=== PATIENT | female | born 1975 | race Caucasian/White ===

== ENCOUNTER → 2019-05-19 | Outpatient (CLI) | payer OTHER, SELFPAY ==
[2019-05-21 16:08] LABS: Age Gdln ACOG Testing 30-65 (.)
[2019-05-22 16:55] LABS: HPV APTIMA, High Risk Negative (Negative)
[2019-05-22 16:56] LABS: HPV Reflexed? YES, CHARGE PATIENT
== END | disposition home or self-care (01) ==
LOC: LABSPEC 10:02
PROVIDERS: Visit Provider Obstetrics & Gynecology
DX: Z12.4 Encounter for screening for malignant neoplasm of cervix (principal)
CPT/HCPCS: 87624; 88175; G0145

== ENCOUNTER → 2019-07-07 07:06 | Outpatient (CLI) | payer OTHER, SELFPAY ==
--- NOTE | 2019-07-07 07:09 | BI_ITS ---
MAMMOGRAPHY - BILATERAL SCREENING 3-D TOMOSYNTHESIS REASON FOR EXAM: Female, 44 years old. BASELINE -- FAM HX PAT GRAM AGE 55 -- NO ISSUES PERTINENT HISTORY: Positive family history as described above. TECHNIQUE: 2-D mammograms and 3-D Tomosynthesis of the breast (s) were performed. CAD was performed. COMPARISON: None. Baseline examination. FINDINGS: The breast composition is composed of scattered fibroglandular density. Scattered benign calcifications are seen. No dense spiculated masses or suspicious microcalcifications are identified. No architectural distortion is identified. There is no skin thickening or retraction. No mammographic abnormality to indicate malignancy. BI/SCREEN MAMM (CAD) W/KIM BILAT IMPRESSION: No mammographic signs of malignancy. Routine yearly mammograms recommended. ASSESSMENT CATEGORY: BIRADS Category 1: Negative. A letter regarding these results will be sent to the patient by the facility within 30 days. FOLLOW UP RECOMMENDATION: Yearly follow up mammogram recommended. (A) Approximately 10% of breast cancers are not detected by mammography. A normal mammogram should not delay biopsy of a clinically suspicious abnormality. Electronically Signed: Brayden Guerrero MD at 14:47 EST Tel [phone], Service support ,
== END ==
PROVIDERS: Family Provider Family Medicine; PCP Family Medicine; Referring Provider Obstetrics & Gynecology; Visit Provider Obstetrics & Gynecology
DX: Z12.31 Encounter for screening mammogram for malignant neoplasm of breast (principal)
CPT/HCPCS: 77063; 77067

== ENCOUNTER → 2019-12-14 09:38 | Outpatient (CLI) | payer OTHER, SELFPAY ==
[2019-12-14 13:44] LABS: ALB/GLOB Ratio 0.8 RATIO (0.9-2.4); AST(SGOT) 17 U/L (15-37); Alanine Aminotransfer ALT/SGPT 19 U/L (13-56); Albumin, Serum 3.8 g/dL (3.2-5.0); Alkaline Phosphatase 96 U/L (45-117); Anion Gap 9 (5-15); BUN 15 mg/dL (7-18); BUN/Creat Ratio 19.9 RATIO (10-20); Chloride 105 mmol/L (98-107); Creatinine, Serum 0.75 mg/dL (0.55-1.02); EST Glomerular Filtration Rate 89 mL/min (>60); Est Glom Filt Rate - Afr Amer 107 mL/min (>60); Globulin 4.5 g/dL (2.2-4.2); Glucose 95 mg/dL (74-106); Potassium 3.8 mmol/L (3.5-5.1); Protein, Total 8.3 g/dL (6.4-8.2); Sodium Level 138 mmol/L (136-145)
== END ==
PROVIDERS: PCP Family Medicine; Referring Provider Family Medicine; Visit Provider Family Medicine
DX: B35.1 Tinea unguium (principal)
CPT/HCPCS: 36415; 80053

== ENCOUNTER → 2022-01-23 | Outpatient (CLI) | payer OTHER, SELFPAY ==
[2022-01-27 08:22] LABS: HPV APTIMA, High Risk Negative (Negative)
== END | disposition home or self-care (01) ==
PROVIDERS: PCP Family Medicine; Visit Provider Student in an Organized Health Care Education/Training Program
DX: Z12.4 Encounter for screening for malignant neoplasm of cervix (principal)
CPT/HCPCS: 87624; 88175; G0145

== ENCOUNTER → 2023-03-22 | Outpatient (CLI) | payer OTHER, SELFPAY ==
[2023-03-22 17:37] LABS: Hematocrit 37.7 % (37-47); Hemoglobin 12.3 g/dL (12.0-15.0); Mean Corp Hgb Conc 32.6 g/dL (32-36); Mean Corpuscular Hgb 30.6 pg (27.0-32.0); Mean Corpuscular Volume 93.8 fL (81-99); Mean Platelet Vol. 11.1 fl (6.2-12.0); Platelet Count 220 K/mm3 (150-450); RBC Distribution Width CV 12.7 % (11.6-14.6); RBC Distribution Width SD 43.5 fl (35.1-43.9); Red Blood Count 4.02 M/mm3 (4.2-5.4); White Blood Count 7.3 K/mm3 (4.4-11.0)
[2023-03-22 18:33] LABS: Hemoglobin A1c 5.3 % (3.8-5.6)
[2023-03-22 18:38] LABS: ALB/GLOB Ratio 1.1 RATIO (0.9-2.4); AST(SGOT) 15 U/L (15-37); Alanine Aminotransfer ALT/SGPT 18 U/L (13-56); Albumin, Serum 3.8 g/dL (3.2-5.0); Alkaline Phosphatase 109 U/L (45-117); Anion Gap 6 (5-15); BUN 12 mg/dL (7-18); Calcium,Total 8.8 mg/dL (8.5-10.1); Chloride 106 mmol/L (98-107); Cholesterol 207 mg/dL (200); Creatinine, Serum 0.71 mg/dL (0.55-1.02); EST Glomerular Filtration Rate 94 mL/min (>60); Est Glom Filt Rate - Afr Amer 114 mL/min (>60); Globulin 3.6 g/dL (2.2-4.2); Glucose 90 mg/dL (74-106); High Density Lipoprotein 51 mg/dL; Potassium 3.9 mmol/L (3.5-5.1); Protein, Total 7.4 g/dL (6.4-8.2); Sodium Level 139 mmol/L (136-145); Thyroid Stim Hormone (TSH) 3.37 uIU/mL (0.358-3.74); Triglycerides 92 mg/dL; Very Low Density Lipoprotein 18 mg/dL (5-40)
== END | disposition home or self-care (01) ==
LOC: MTLAB 14:08
PROVIDERS: PCP Family Medicine; Referring Provider Family Medicine; Visit Provider Family Medicine
DX: Z00.01 Encounter for general adult medical examination with abnormal findings (principal); E66.01 Morbid (severe) obesity due to excess calories; Z68.42 Body mass index [BMI] 45.0-49.9, adult
CPT/HCPCS: 36415; 80053; 80061; 83036; 84443; 85027

== ENCOUNTER → 2023-03-29 | Outpatient (CLI) | payer OTHER, SELFPAY ==
[2023-03-29 15:47] LABS: Follicle Stimulating Hormone 3.9 mIU/mL; Luteinizing Hormone 5.5 mIU/mL
== END | disposition home or self-care (01) ==
LOC: MTLAB 13:14
PROVIDERS: PCP Family Medicine; Referring Provider Family Medicine; Visit Provider Family Medicine
DX: N91.2 Amenorrhea, unspecified (principal)
CPT/HCPCS: 36415; 83001; 83002

== ENCOUNTER → 2023-04-04 | Outpatient (CLI) | payer OTHER, SELFPAY ==
--- NOTE | 2023-04-04 07:15 | BI_ITS ---
MAMMOGRAPHY - BILATERAL SCREENING REASON FOR EXAM: Female, 48 years old. Routine annual screening examination. PERTINENT HISTORY: Grandmother with breast cancer. TECHNIQUE: Digital bilateral breast kim (3D mammographic acquisition) in the CC and MLO projections. 2-D mediolateral oblique (MLO) and craniocaudad (CC) views of both breasts were obtained. CAD: Full Field Digital Mammography with Computer Added Detection was performed. COMPARISON: Comparison is made with prior study dated July 07, 2019. FINDINGS: Breast Composition: There are scattered areas of fibroglandular density. There are no dominant masses or suspicious calcifications. Stable small benign-appearing bilateral axillary lymph nodes. No other significant abnormalities are identified. There has been no significant change since the prior study. BI/SCRN MAMM (CAD)W/KIM BILAT IMPRESSION: Stable bilateral screening mammogram. Yearly follow-up mammogram recommended. (A) ASSESSMENT CATEGORY: BIRADS Category 1: Negative. A letter regarding these results will be sent to the patient by the facility within 30 days. Approximately 10% of breast cancers are not detected by mammography. A normal mammogram should not delay biopsy of a clinically suspicious abnormality. [id number] Electronically Signed: Nolan Zuluaga MD at 9:34 EDT ,
== END | disposition home or self-care (01) ==
PROVIDERS: PCP Family Medicine; Referring Provider Family Medicine; Visit Provider Family Medicine
DX: Z12.31 Encounter for screening mammogram for malignant neoplasm of breast (principal)
CPT/HCPCS: 77063; 77067

== ENCOUNTER → 2023-09-05 | Outpatient (CLI) | payer OTHER, SELFPAY ==
[2023-09-05 18:22] LABS: Vitamin B12 325 pg/mL (211-911)
[2023-09-05 18:26] LABS: Hemoglobin A1c 5.9 % (3.8-5.6)
[2023-09-05 18:30] LABS: ALB/GLOB Ratio 0.8 RATIO (0.9-2.4); AST(SGOT) 17 U/L (15-37); Alanine Aminotransfer ALT/SGPT 21 U/L (13-56); Albumin, Serum 3.7 g/dL (3.2-5.0); Alkaline Phosphatase 124 U/L (45-117); Anion Gap 5 (5-15); BUN 13 mg/dL (7-18); BUN/Creat Ratio 16.4 RATIO (10-20); Calcium,Total 9.3 mg/dL (8.5-10.1); Chloride 107 mmol/L (98-107); Cholesterol 196 mg/dL (200); Creatinine, Serum 0.79 mg/dL (0.55-1.02); EST Glomerular Filtration Rate 82 mL/min (>60); Est Glom Filt Rate - Afr Amer 99 mL/min (>60); Globulin 4.4 g/dL (2.2-4.2); Glucose 107 mg/dL (74-106); High Density Lipoprotein 48 mg/dL; Potassium 3.9 mmol/L (3.5-5.1); Protein, Total 8.1 g/dL (6.4-8.2); Sodium Level 139 mmol/L (136-145); Thyroid Stim Hormone (TSH) 6.48 uIU/mL (0.358-3.74); Triglycerides 194 mg/dL; Very Low Density Lipoprotein 39 mg/dL (5-40)
--- OUTSIDE RECORDS SUMMARY | 2023-09-05 19:26 | XMS RPT_ITS | CCD ---
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 Name Role Phone Noelle Mazariegos MD Primary Care Provider NOELLE MAZARIEGOS Primary Care Unavailabl e SHANNON PETERSON Attending Unavailable RAEANN-ZONIA CASTILLO Referring Unavailable NOELLE MAZARIEGOS Primary Care Unavailabl SHANNON Rinaldi Attending Unavailable NOELLE MAZARIEGOS Primary Care Unavailabl e SHANNON PETERSON Referring Unavailable NOELLE MAZARIEGOS Primary Care Unavailabl e SHANNON PETERSON Attending Unavailable NOELLE MAZARIEGOS Primary Care Unavailabl e SHANNON PETERSON Referring Unavailable SHANNON PETERSON Attending Unavailable Noelle Mazariegos MD Primary Care Provider NOELLE MAZARIEGOS Primary Care Unavailabl e SELF Referring Unavailable AKILAH CORONEL Attending Unavailabl e NOELLE MAZARIEGOS Primary Care Unavailabl SHANNON Rinaldi Referring Unavailable RAUH-ANNA, ZONIA A Attending Unavailable RAUH-ANNA, ZONIA A Admitting Unavailable RAUH-ANNA, ZONIA A Attending Unavailable RA-ANNA, ZONIA A Referring Unavailable NOELLE MAZARIEGOS Primary Care Unavailabl e NOELLE MAZARIEGOS Primary Care Unavailabl e RAUH-ANNA, ZONIA A Referring Unavailable RAUH-NANA, ZONIA A Referring Unavailable NOELLE MAZARIEGOS Primary Care Unavailabl e RAUH-ANNA, ZONIA A Attending Unavailable NOELLE MAZARIEGOS Primary Care Unavailabl e RAUH-ANNA, ZONIA A Referring Unavailable NOELLE MAZARIEGOS Primary Care LIZZETH Raymond Referring Unavailable NOELLE [facility]GOS [facility] RAZONIA WICK Attending Unavailable NOELLE MAZARIEGOS Primary Care NOELLE Joe [facility]ending [facility] Referring Unavailable Medications Current Medications Medication Drug Class(es) Dates Sig (Normalized) Sig (Original) lidocaine 25 mg/ml / prilocaine 25 mg/ml topical cream (1 source) Antiarrhythmic, Amide Local Anesthetic Start: 07-02-2023 End: 07-03-2023 lidocaine-prilocai ne (EMLA) 2.5-2.5 % cream Apply to affected area as needed for up to 1 day. 5 g 0 07/02/2023 07/03/2023 Suspended Completed/Discontinued Medications Medication Drug Class(es) Dates Sig (Normalized) Sig (Original) acetaminophen 500 mg oral tablet (2 sources) Start: 07-04-2023 End: 08-23-2023 take 2 tablets by mouth every six hours acetaminophen (TYLENOL EXTRA STRENGTH) 500 mg tablet Take 2 tablets by mouth every 6 hours. 90 tablet 0 07/04/2023 08/23/2023 Discontinued (Course of therapy completed) Problems Problem Classification Problem Date Documented Date Episodic/Chronic Cancer of other female genital organs (20 sources) Squamous cell carcinoma of vulva; Translations: [Malignant neoplasm of vulva, unspecified] Onset: 06-03-2023 05-20-2023 Chronic Esophageal disorders (8 sources) Gastroesophageal reflux disease without esophagitis; Translations: [Gastro-esophageal reflux disease without esophagitis] Onset: 06-27-2023 06-27-2023 Chronic Essential hypertension (6 sources) Essential hypertension; Translations: [Essential (primary) hypertension] Onset: 06-27-2023 06-27-2023 Chronic Immunizations and screening for infectious disease (1 source) Patient encounter status; Translations: [Encounter for screening for human papillomavirus (HPV)] 04-22-2023 Episodic Menstrual disorders (1 source) Irregular periods; Translations: [Irregular menstruation, unspecified] 05-15-2023 Chronic Other aftercare (1 source) Surgical follow-up; Translations: [Encounter for follow-up examination after completed treatment for conditions other than malignant neoplasm] 07-21-2023 Episodic Other aftercare (1 source) Wound ; Translations: [Encounter for other specified surgical aftercare] 08-23-2023 Episodic Other aftercare (1 source) Encounter for other specified surgical aftercare; Translations: [Encounter for post surgical wound check] Onset: 08-23-2023 Episodic Other female genital disorders (2 sources) Lesion of vulva; Translations: [Other specified noninflammatory disorders of vulva and perineum] 04-22-2023 Episodic Other nutritional; endocrine; and metabolic disorders (17 sources) Body mass index 40+ - severely obese; Translations: [Morbid (severe) obesity due to excess calories] Onset: 04-22-2023 04-22-2023 Chronic Other nutritional; endocrine; and metabolic disorders (1 source) Morbid (severe) obesity due to excess calories; Translations: [Obesity, Class III, BMI 40-49.9 (morbid obesity) ([facility])] Onset: 04-22-2023 Chronic Other screening for suspected conditions (not mental disorders or infectious disease) (1 source) Cancer cervix screening status; Translations: [Encounter for screening for malignant neoplasm of cervix] 04-22-2023 Episodic Other skin disorders (11 sources) Lichen sclerosus et atrophicus; Translations: [Circumscribed scleroderma] Onset: 06-03-2023 06-03-2023 Chronic Residual codes; unclassified (7 sources) Obstructive sleep apnea syndrome; Translations: [Obstructive sleep apnea (adult) (pediatric)] Onset: 06-27-2023 06-27-2023 Chronic Residual codes; unclassified (1 source) Obstructive sleep apnea (adult) (pediatric); Translations: [ALLY (obstructive sleep apnea)] Onset: 06-27-2023 Chronic Residual codes; unclassified (2 sources) Postoperative state; Translations: [Other specified postprocedural states] Onset: 07-04-2023 07-04-2023 Episodic Residual codes; unclassified (1 source) Other specified postprocedural states; Translations: [Postoperative state] Onset: 07-04-2023 Episodic Unclassified (1 source) Post Op Onset: 07-18-2023 Results Test Name Value Interpretation Reference Range Facil ity Vital Signs Date Time Vital Sign Value Performing Clinician Faci lity 08-23-2023 12:58-0500 Body temperature 98.2 [degF] Akilah Coronel RN PROGRESSIVE CARE UNIT.REDRAWER Work Phone: [facility] 08-23-2023 12:58-0500 Body weight 116.57 kg Akilah Coronel RN PROGRESSIVE CARE UNIT.REDRAWER Work Phone: [facility] 08-23-2023 12:58-0500 Diastolic blood pressure 98 mm[Hg] Akilah Coronel RN PROGRESSIVE CARE UNIT.REDRAWER Work Phone: [facility] 08-23-2023 12:58-0500 Heart rate 80 /min Akilah Coronel RN PROGRESSIVE CARE UNIT.REDRAWER Work Phone: [facility] 08-23-2023 12:58-0500 SaO2% (BldA) [Mass fraction] 97 % Akilah Coronel RN PROGRESSIVE CARE UNIT.REDRAWER Work Phone: [facility] 08-23-2023 12:58-0500 Systolic blood pressure 138 mm[Hg] Akilah Coronel RN PROGRESSIVE CARE UNIT.REDRAWER Work Phone: [facility] 07-18-2023 13:05-0500 Body height 160 cm Zonia Herring MD Work Phone: [facility] 07-18-2023 13:05-0500 Body temperature 98.2 [degF] Zonia Herring MD Work Phone: [facility] 07-18-2023 13:05-0500 Body weight 114.31 kg Zonia Herring MD Work Phone: [facility] 07-18-2023 13:05-0500 Diastolic blood pressure 93 mm[Hg] Zonia Herring MD Work Phone: [facility] 07-18-2023 13:05-0500 Heart rate 75 /min Zonia Herring MD Work Phone: [facility] 07-18-2023 13:05-0500 SaO2% (BldA) [Mass fraction] 97 % Zonia Herring MD Work Phone: [facility] 07-18-2023 13:05-0500 Systolic blood pressure 136 mm[Hg] Zonia Herring MD Work Phone: [facility] 06-27-2023 14:28-0500 Body height 160 cm Pst 1 [facility] 06-27-2023 14:28-0500 Body temperature 98.8 [degF] Pst 1 [facility] 06-27-2023 14:28-0500 Body weight 114.31 kg Pst 1 [facility] 06-27-2023 14:28-0500 Diastolic blood pressure 102 mm[Hg] Pst 1 [facility] 06-27-2023 14:28-0500 Heart rate 82 /min Pst 1 [facility] 06-27-2023 14:28-0500 Respiratory rate 16 /min Pst 1 [facility] 06-27-2023 14:28-0500 SaO2% (BldA) [Mass fraction] 96 % Pst 1 [facility] 06-27-2023 14:28-0500 Systolic blood pressure 158 mm[Hg] Pst 1 [facility] 06-03-2023 10:36-0500 Body height 157.5 cm Zonia Herring MD Work Phone: [facility] 06-03-2023 10:36-0500 Body temperature 98.29 [degF] Zonia Herring MD Work Phone: [facility] 06-03-2023 10:36-0500 Body weight 114.31 kg Zonia Herring MD Work Phone: [facility] 06-03-2023 10:36-0500 Diastolic blood pressure 116 mm[Hg] Zonia Herring MD Work Phone: [facility] 06-03-2023 10:36-0500 Heart rate 85 /min Zonia Herring MD Work Phone: [facility] 06-03-2023 10:36-0500 SaO2% (BldA) [Mass fraction] 97 % Zonia Herring MD Work Phone: [facility] 06-03-2023 10:36-0500 Systolic blood pressure 161 mm[Hg] Zonia Herring MD Work Phone: [facility] 05-15-2023 15:20-0400 Body weight 115.21 kg Shannon Peterson MD Work Phone: [facility] 05-15-2023 15:20-0400 Diastolic blood pressure 88 mm[Hg] Shannon Peterson MD Work Phone: [facility] 05-15-2023 15:20-0400 Systolic blood pressure 142 mm[Hg] Shannon Peterson MD Work Phone: [facility] 04-22-2023 14:37-0400 Body height 160 cm Shannon Peterson MD Work Phone: [facility] 04-22-2023 14:37-0400 Body weight 116.57 kg Shannon Peterson MD Work Phone: [facility] 04-22-2023 14:37-0400 Diastolic blood pressure 92 mm[Hg] Shannon Peterson MD Work Phone: [facility] 04-22-2023 14:37-0400 Systolic blood pressure 154 mm[Hg] Shannon Peterson MD Work Phone: [facility] Encounters Encounter Date Encounter Type Care Provider Facility Start: 08-23-2023 End: 08-23-2023 ambulatory Akilah Coronel APRN.CNP Work Phone: [facility] Gynecology Oncology Procedures Date Procedure Procedure Detail Performing Clinician Start: 06-27-2023 Antibody screen IVETTE MAZARIEGOS Plan of Treatment Date Care Activity Detail Author Start: 09-03-2032 Urine microalbumin profile DTaP,Tdap,Td Vaccine (2 - Td or Tdap) [facility] Start: 01-23-2027 HPV Testing HPV Testing [facility] Start: 01-23-2027 Pap Testing Pap Testing [facility] Start: 01-23-2027 Screening for malignant neoplasm of cervix [facility] Start: 06-19-2026 Diabetes Screening Diabetes Screening [facility] Start: 03-22-2024 Mammography Mammogram Screening [facility] Start: 03-22-2024 Screening for malignant neoplasm of breast Mammogram Screening [facility] Start: 07-15-2023 Depression Assessment Depression Assessment [facility] Start: 03-15-2023 Influenza [facility] Start: 07-15-2022 Depression Assessment Depression Assessment [facility] Start: 01-17-2022 Diabetes Screening Diabetes Screening [facility] Start: 07-07-2020 Mammography Mammogram Screening [facility] Start: 2020 Cologuard (FIT-DNA) Cologuard (FIT-DNA) [facility] Start: 2020 Colonoscopy Colonoscopy [facility] Start: 2020 Colorectal Cancer Screening Colorectal Cancer Screening [facility] Start: [address] COLONOGRAPHY [facility] Start: 2020 Fecal Occult Blood Fecal Occult Blood [facility] Start: 2020 Lipid 1996 panel - Serum or Plasma Lipid Screening [facility] Start: 2020 Lipid panel Lipid Screening [facility] Start: 2020 Screening for malignant neoplasm of colon [facility] Start: 2020 SIGMOIDOSCOPY SIGMOIDOSCOPY [facility] Start: 1994 Urine microalbumin profile DTaP,Tdap,Td Vaccine (1 - Tdap) [facility] Start: 1993 Annual PCP Team Chronic Disease Visit Annual PCP Team Chronic Disease Visit [facility] Start: 1993 BP Controlled (<130/80) BP Controlled (<130/80) [facility] Start: 1993 Hepatitis C Screening Hepatitis C Screening [facility] Start: 1993 Hepatitis C screening Hepatitis C Screening [facility] Start: 1993 HIV Screening HIV Screening [facility] Start: 1993 HIV screening HIV Screening [facility] Start: 1975 Covid-19 Vaccine (#1) Covid-19 Vaccine (#1) [facility] Start: 1975 Hepatitis B Vaccine (1 of 3 - 3-dose series) Hepatitis B Vaccine (1 of 3 - 3-dose series) [facility] Biopsy vulva/perineu m 1 lesion spx BIOPSY OF VULVA Procedures Routine Vulval lesion Ordered: 04/22/2023 [facility] Work Phone: Immunizations Immunization Date Immunization Notes Care Provider Fa carlos 09-03-2022 tetanus toxoid, redu reema diphtheria toxoid, and acellular pertussis vaccine, adsorbed Shannon Peterson MD Work Phone: [facility] Work Phone: Payers Date Payer Category Payer Private Health Insurance [id number] 2021 Private Health Insurance [id number] 2021 Private Health Insurance [id number] Social History Date Type Detail Facility Start: 01-17-2019 End: 04-22-2023 Tobacco smoking status NHIS Never smoked tobacco [facility] Start: 01-17-2019 End: 04-22-2023 Tobacco use and exposure Smokeless tobacco non-user [facility] Start: 04-04-2023 Alcohol intake Lifetime non-d carson (finding) [facility] Start: 01-17-2019 End: 07-18-2023 History of Social function [facility] Start: 01-17-2019 End: 07-18-2023 Alcohol Use Disorder Identification Test - Consumption [AUDIT-C] [facility] Frequency of Alcohol Consumption Never [facility] Start: 1975 Sex Assigned At Not on file [facility] Start: 04-22-2023 End: 08-23-2023 Alcohol intake Current drinker of alcohol (finding) [facility] Start: 04-09-2023 Alcohol Comment [facility]ly [facility] Start: [facility] Sex Assigned At Female C [facility] Start: 06-12-2023 Gender identity Identifies as female gender (finding) [facility] Start: 06-12-2023 Sexual orientation Heterosexual (fin ding) [facility] Clinical Notes 04-22-2023 to 08-23-2023 Akilah Coronel, RN PROGRESSIVE CARE UNIT.REDRAWER - 08/23/2023 1:00 PM Zonia Proctor MD - 07/21/2023 10:26 AM ESTTelephone Encounter - Ghada Birmingham MA - 07/01/2023 2:51 PM ESTPatient Instructions Note Date & Type Note Facility 08-23-2023 Note HNO ID: [id number] Author: AKILAH CORONEL APRN.LEI Service: ? Author Type: Nurse Practitioner Type: Progress Notes Filed: 08/23/2023 13:40 Note Text: Gynecologic Oncology Note [facility] Referring provider: Dr. Peterson Chief complaint: wound check HPI: This is a 48 year old patient s/p left sentinel inguinofemoral lymph node dissection and radical left hemivulvectomy here for wound check Doing well NO pain. No drainage from wound - no odor.no bleeding Reports good appetite and denies N/V/C/D. No issues with bladder or bowel habits ROS: 14 point ROS negative unless indicated in above HPI. Oncologic history: Oncology History Vulvar cancer (HCC) 06/03/2023 Initial Diagnosis Vulvar cancer (HCC) 07/03/2023 Surgery Left sentinel inguinofemoral lymph node dissection, left radical hemivulvectomy. Well differentiated SCC of the vulva arising in lichen sclerosus, no dVIN. Negative margins - closest 5 mm 9 oclock (medial). 0/1 + sentinel lymph nodes. No LVSI. Final stage IB. PE: EGOG PS 0 LMP 06/06/2023 (Approximate) Gen: well-appearing, NAD Groin: left incision healing well, no erythema, Pelvic: incision completely healed at superior aspect, inferior aspect did not close together, tissue beneath is very healthy no e/o infection, Dr gramajo evaluated wound today as well Labs/Imaging: FINAL DIAGNOSIS A. Left inguinal sentinel lymph node, excisional biopsy: -- Two lymph nodes, negative for metastatic carcinoma (0/2). B. 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 -- Depth of invasion: 3 mm. -- All margins negative for invasive carcinoma; closest margin at 9:00 o'clock: 5 mm. -- Background of lichen sclerosus. C. Deep medial vulvar margin, excision: -- Fibroadipose tissue, negative for carcinoma. 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 - Wound check in 3-[address] Gramajo for re-eval and discuss if she wants to have the open flap of tissue excised. Currently isn't giving her any issues but hasn't resumed ic yet. Advise ok resume Ic and see if she has troubles b/c that may help her decide. If she wants to pursue surgery Vulvar cancer: - Final stage IB. HPV independent related to untreated LS (see below). - Previously Discussed observation versus re-excision. radiation would have far more morbidity than benefit. -disc previous conversation with dr Gramajo of obs vs re-excison she elects for observation Lichen sclerosus: - Will need treated. Plan to do nightly clobetasol x 3 months after wound healed. -hold on treatment for now until follow up appt and re-eval and if she decides to have surgery Akilah Coronel, RN PROGRESSIVE CARE UNIT.REDRAWER Some elements copied previous notes , including the physical exam completed in entirety today, have been updated where appropriate. All reflect current medical decision making from today, Medical Decision Making: Problems: Low: Acute, uncomplicated illness or injury Risk: Low: Low risk from testing/treatment Medical Decision Making Level: 3 - Low [facility] 08-23-2023 History of Presen t illness Narrative Gynecologic Oncology Note [facility] Referring provider: Dr. Peterson Chief complaint: wound check HPI: This is a 48 year old patient s/p left sentinel inguinofemoral lymph node dissection and radical left hemivulvectomy here for wound check Doing well NO pain. No drainage from wound - no odor.no bleeding Reports good appetite and denies N/V/C/D. No issues with bladder or bowel habits ROS: 14 point ROS negative unless indicated in above HPI. Oncologic history: Oncology History Vulvar cancer (HCC) 06/03/2023 Initial Diagnosis Vulvar cancer (HCC) 07/03/2023 Surgery Left sentinel inguinofemoral lymph node dissection, left radical hemivulvectomy. Well differentiated SCC of the vulva arising in lichen sclerosus, no dVIN. Negative margins - closest 5 mm 9 oclock (medial). 0/1 + sentinel lymph nodes. No LVSI. Final stage IB. PE: EGOG PS 0 LMP 06/06/2023 (Approximate) Gen: well-appearing, NAD Groin: left incision healing well, no erythema, Pelvic: incision completely healed at superior aspect, inferior aspect did not close together, tissue beneath is very healthy no e/o infection, Dr gramajo evaluated wound today as well Labs/Imaging: FINAL DIAGNOSIS A. Left inguinal sentinel lymph node, excisional biopsy: -- Two lymph nodes, negative for metastatic carcinoma (0/2). B. 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 -- Depth of invasion: 3 mm. -- All margins negative for invasive carcinoma; closest margin at 9:00 o'clock: 5 mm. -- Background of lichen sclerosus. C. Deep medial vulvar margin, excision: -- Fibroadipose tissue, negative for carcinoma. 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 - Wound check in 3-[address] Gramajo for re-eval and discuss if she wants to have the open flap of tissue excised. Currently isn't giving her any issues but hasn't resumed ic yet. Advise ok resume Ic and see if she has troubles b/c that may help her decide. If she wants to pursue surgery Vulvar cancer: - Final stage IB. HPV independent related to untreated LS (see below). - Previously Discussed observation versus re-excision. radiation would have far more morbidity than benefit. -disc previous conversation with dr Gramajo of obs vs re-excison she elects for observation Lichen sclerosus: - Will need treated. Plan to do nightly clobetasol x 3 months after wound healed. -hold on treatment for now until follow up appt and re-eval and if she decides to have surgery Akilah Coronel APRN.REDRAWER Some elements copied previous notes , including the physical exam completed in entirety today, have been updated where appropriate. All reflect current medical decision making from today, Medical Decision Making: Problems: Low: Acute, uncomplicated illness or injury Risk: Low: Low risk from testing/treatment Medical Decision Making Level: 3 - Low documented in this encounter [facility] 07-31-2023 Note HNO ID: [id number] Author: AKILAH CORONEL APRN.REDRAWER Service: ? Author Type: Nurse Practitioner Type: Progress Notes Filed: 07/31/2023 14:43 Note Text: Gynecologic Oncology Note [facility] Referring provider: Dr. Peterson Chief complaint: wound check HPI: This is a 48 year old patient s/p left sentinel inguinofemoral lymph node dissection and radical left hemivulvectomy here for wound check doing well. Minimal pain. Some drainage from wound - no odor.no bleeding Reports good appetite and denies N/V/C/D. No issues with bladder habits. 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 Oncologic history: Oncology History Vulvar cancer (HCC) 06/03/2023 Initial Diagnosis Vulvar cancer (HCC) 07/03/2023 Surgery Left sentinel inguinofemoral lymph node dissection, left radical hemivulvectomy. Well differentiated SCC of the vulva arising in lichen sclerosus, no dVIN. Negative margins - closest 5 mm 9 oclock (medial). 0/1 + sentinel lymph nodes. No LVSI. Final stage IB. PE: EGOG PS 0 BP 127/89 (BP Site: Right Arm, BP Position: Sitting, BP Cuff Size: Extra Large Adult) Pulse 72 Temp 36.6 ?C (97.9 ?F) (Oral) Ht 160 cm (5' 3 ) Wt 116.6 kg (257 lb) LMP 06/06/2023 (Approximate) SpO2 95% BMI 45.53 kg/m? Gen: well-appearing, NAD Groin: left incision healing well, no erythema, Pelvic: incision almost completely healed at superior aspect, inferior aspect with some superficial dehiscence along bottom half of incision, granulation tissue, some exudate easily debrided with gauze/ q tip., base pink healthy appearing slight bleeding with debridement ,no e/o infection, few sutures intact , some sutures wiped away Labs/Imaging: FINAL DIAGNOSIS A. Left inguinal sentinel lymph node, excisional biopsy: -- Two lymph nodes, negative for metastatic carcinoma (0/2). B. 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 -- Depth of invasion: 3 mm. -- All margins negative for invasive carcinoma; closest margin at 9:00 o'clock: 5 mm. -- Background of lichen sclerosus. C. Deep medial vulvar margin, excision: -- Fibroadipose tissue, negative for carcinoma. 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 - Wound check in [address] Gramajo sooner if any changes Vulvar cancer: - Final stage IB. HPV independent related to untreated LS (see below). - Previously Discussed observation versus re-excision. radiation would have far more morbidity than benefit. -disc previous conversation with dr Gramajo of obs vs re-excison she elects for observation Lichen sclerosus: - Will need treated. Plan to do nightly clobetasol x 3 months after wound healed. -still needs more healing time Akilah Coronel, RN PROGRESSIVE CARE UNIT.REDRAWER Some elements copied previous notes , including the physical exam completed in entirety today, have been updated where appropriate. All reflect current medical decision making from today, Medical Decision Making: Problems: Low: Acute, uncomplicated illness or injury Data: Unique source(s) for external note(s) reviewed: 3+ Unique test result(s) reviewed: 3+ Risk: Low: Low risk from testing/treatment Medical Decision Making Level: 3 - Low [facility] 07-21-2023 Note HNO ID: [id number] Author: ZONIA HERRING MD Service: ? Author Type: Physician Type: Progress Notes Filed: 07/21/2023 10:38 Note Text: Gynecologic Oncology Note [facility] Referring provider: Dr. Peterson Chief complaint: Postop HPI: This is a 48 year old patient s/p left sentinel inguinofemoral lymph node dissection and radical left hemivulvectomy here for postoperative visit. Really doing well. Minimal pain. Some drainage from wound - no odor. Reports good appetite and denies N/V/C/D. No issues with bladder habits. ROS: 14 point ROS negative unless indicated in above HPI. Oncologic history: Oncology History Vulvar cancer (HCC) 06/03/2023 Initial Diagnosis Vulvar cancer (HCC) 07/03/2023 Surgery Left sentinel inguinofemoral lymph node dissection, left radical hemivulvectomy. Well differentiated SCC of the vulva arising in lichen sclerosus, no dVIN. Negative margins - closest 5 mm 9 oclock (medial). 0/1 + sentinel lymph nodes. No LVSI. Final stage IB. Medical history: PAST MEDICAL HISTORY Diagnosis Date GERD (gastroesophageal reflux disease) HTN (hypertension) Lichen sclerosus Obesity ALLY (obstructive sleep apnea) Vulvar cancer (HCC) Surgical history: PAST SURGICAL HISTORY Procedure Laterality Date DELIVERY ONLY 03/25/2000 per Natividad Palomino M.D. due to failure to progress DELIVERY ONLY 02/26/2003 RC/S per Dr. Palomino DELIVERY ONLY 08/27/2005 RC/S per Dr. 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 No abnormal pap smears - last was in 2021. Family history: Family History Problem Relation Age of Onset other (CVA) Father Colon Cancer Father Stroke Father other (atrial fib) Father Hypertension Brother Crohn's Disease Brother Breast Cancer Paternal Grandmother Social history: Social History Tobacco Use Smoking status: Never Smokeless tobacco: Never Vaping Use Vaping Use: Never used Substance Use Topics Alcohol use: Yes Comment: Rarely Drug use: Never Lives with and 3 children. [place] - probation. Medications: Current Outpatient Medications Medication Sig Dispense Refill acetaminophen (TYLENOL EXTRA STRENGTH) 500 mg tablet Take 2 tablets by mouth every 6 hours. 90 tablet 0 ibuprofen (MOTRIN) 600 mg tablet Take 1 tablet by mouth every 6 hours as needed for pain. 90 tablet 0 oxyCODONE IR (ROXICODONE) 5 mg immediate release tablet Take 1 tablet by mouth every 6 hours as needed for pain. 15 tablet 0 No current facility-administered medications for this visit. Healthcare maintenance: Colonoscopy: 10 years ago - normal. Mammogram: 03/2023 - repeat in 1 year. Pap smear: Reports normal 2021 PE: EGOG PS 0 BP 136/93 (BP Site: Left Arm, BP Position: Sitting, BP Cuff Size: Extra Large Adult) Pulse 75 Temp 36.8 ?C (98.2 ?F) (Oral) Ht 160 cm (5' 3 ) Wt 114.3 kg (252 lb) LMP 05/04/2023 (Exact Date) SpO2 97% BMI 44.64 kg/m? Gen: well-appearing, NAD Groin: left incision healing well, no erythema, slightly raised due to scarring, no induration Pelvic: incision almost completely healed at superior aspect, inferior aspect with some superficial dehiscence along bottom half of incision, granulation tissue, some exudate easily debrided with moist gauze, no e/o infection, appropriately TTP Labs/Imaging: FINAL DIAGNOSIS A. Left inguinal sentinel lymph node, excisional biopsy: -- Two lymph nodes, negative for metastatic carcinoma (0/2). B. 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 -- Depth of invasion: 3 mm. -- All margins negative for invasive carcinoma; closest margin at 9:00 o'clock: 5 mm. -- Background of lichen sclerosus. C. Deep medial vulvar margin, excision: -- Fibroadipose tissue, negative for carcinoma. 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 Postop: - Pathology reviewed and report provided - Meeting appropriately goals - Slight superficial wound dehiscence, no e/o infection. - Wound check in 2 weeks Vulvar cancer: - Final stage IB. HPV independent related to untreated LS (see below). - I would not recommend any adjuvant therapy. We did discuss close medial margin (ideally we would have achieved 8 mm). Not surprising given that this is the medial margin abutting vagina. - Discussed observation versus re-excision. I think radiation would have far more morbidity than benefit. - I favor the former rather than latter given location. We reviewed that older data suggests higher rate or recurrence with margin < 8 mm (Heparrish et al 1990) but newer data does not find difference in recurrence when comparing 8 vs 5 vs 3 mm and rather that dVIN at (more content not included)... [facility] 07-21-2023 History of Presen t illness Narrative Gynecologic Oncology Note [facility] Referring provider: Dr. Peterson Chief complaint: Postop HPI: This is a 48 year old patient s/p left sentinel inguinofemoral lymph node dissection and radical left hemivulvectomy here for postoperative visit. Really doing well. Minimal pain. Some drainage from wound - no odor. Reports good appetite and denies N/V/C/D. No issues with bladder habits. ROS: 14 point ROS negative unless indicated in above HPI. Oncologic history: Oncology History Vulvar cancer (HCC) 06/03/2023 Initial Diagnosis Vulvar cancer (HCC) 07/03/2023 Surgery Left sentinel inguinofemoral lymph node dissection, left radical hemivulvectomy. Well differentiated SCC of the vulva arising in lichen sclerosus, no dVIN. Negative margins - closest 5 mm 9 oclock (medial). 0/1 + sentinel lymph nodes. No LVSI. Final stage IB. Medical history: PAST MEDICAL HISTORY Diagnosis Date GERD (gastroesophageal reflux disease) HTN (hypertension) Lichen sclerosus Obesity ALLY (obstructive sleep apnea) Vulvar cancer (HCC) Surgical history: PAST SURGICAL HISTORY Procedure Laterality Date DELIVERY ONLY 03/25/2000 per Natividad Palomino M.D. due to failure to progress DELIVERY ONLY 02/26/2003 RC/S per Dr. Palomino DELIVERY ONLY 08/27/2005 RC/S per Dr. 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 No abnormal pap smears - last was in 2021. Family history: Family History Problem Relation Age of Onset other (CVA) Father Colon Cancer Father Stroke Father other (atrial fib) Father Hypertension Brother Crohn's Disease Brother Breast Cancer Paternal Grandmother Social history: Social History Tobacco Use Smoking status: Never Smokeless tobacco: Never Vaping Use Vaping Use: Never used Substance Use Topics Alcohol use: Yes Comment: Rarely Drug use: Never Lives with and 3 children. [place] - probation. Medications: Current Outpatient Medications Medication Sig Dispense Refill acetaminophen (TYLENOL EXTRA STRENGTH) 500 mg tablet Take 2 tablets by mouth every 6 hours. 90 tablet 0 ibuprofen (MOTRIN) 600 mg tablet Take 1 tablet by mouth every 6 hours as needed for pain. 90 tablet 0 oxyCODONE IR (ROXICODONE) 5 mg immediate release tablet Take 1 tablet by mouth every 6 hours as needed for pain. 15 tablet 0 No current facility-administered medications for this visit. Healthcare maintenance: Colonoscopy: 10 years ago - normal. Mammogram: 03/2023 - repeat in 1 year. Pap smear: Reports normal 2021 PE: EGOG PS 0 BP 136/93 (BP Site: Left Arm, BP Position: Sitting, BP Cuff Size: Extra Large Adult) Pulse 75 Temp 36.8 C (98.2 F) (Oral) Ht 160 cm (5' 3 ) Wt 114.3 kg (252 lb) LMP 05/04/2023 (Exact Date) SpO2 97% BMI 44.64 kg/m Gen: well-appearing, NAD Groin: left incision healing well, no erythema, slightly raised due to scarring, no induration Pelvic: incision almost completely healed at superior aspect, inferior aspect with some superficial dehiscence along bottom half of incision, granulation tissue, some exudate easily debrided with moist gauze, no e/o infection, appropriately TTP Labs/Imaging: FINAL DIAGNOSIS A. Left inguinal sentinel lymph node, excisional biopsy: -- Two lymph nodes, negative for metastatic carcinoma (0/2). B. 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 -- Depth of invasion: 3 mm. -- All margins negative for invasive carcinoma; closest margin at 9:00 o'clock: 5 mm. -- Background of lichen sclerosus. C. Deep medial vulvar margin, excision: -- Fibroadipose tissue, negative for carcinoma. 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 Postop: - Pathology reviewed and report provided - Meeting appropriately goals - Slight superficial wound dehiscence, no e/o infection. - Wound check in 2 weeks Vulvar cancer: - Final stage IB. HPV independent related to untreated LS (see below). - I would not recommend any adjuvant therapy. We did discuss close medial margin (ideally we would have achieved 8 mm). Not surprising given that this is the medial margin abutting vagina. - Discussed observation versus re-excision. I think radiation would have far more morbidity than benefit. - I favor the former rather than latter given location. We reviewed that older data suggests higher rate or recurrence with margin < 8 mm (Jasbir et al 1990) but newer data does not find difference in recurrence when comparing 8 vs 5 vs 3 mm and rather that dVIN at margins is the local city driver for recurrence (Grootenhuis et al [employer] Writer Onc 2019). - RTC in 2 weeks for wound check and further discussion observation vs re-excision. I favor the former. Lichen sclerosus: - Will need treated. Plan to do nightly clobetasol x 3 months after wound healed. Zonia Herring MD, MPH Gynecologic Oncologist documented in this encounter [facility] 07-04-2023 Note HNO ID: [id number] Author: Natividad Jackson MD Service: Gynecology Oncology Author Type: Resident Type: Progress Notes Filed: 07/04/2023 12:25 PM Note Text: Patient voided 100cc spontaneously per RN. Ambulating without difficulty and pain is well controlled. Okay for discharge at this time, order placed. Natividad Jackson MD Pager # [phone] COMMUNITY RESOURCE OFFICER Resident PGY-2 07/04/2023 12:25 PM [facility] 07-04-2023 Note HNO ID: [id number] Author: Ira Coello DO Service: Gynecology Oncology Author Type: Resident Type: Progress Notes Filed: 07/04/2023 6:38 AM Note Text: PROGRESS NOTE - GYNECOLOGY ONCOLOGY SERVICE DATE: 07/04/2023 Code Status: Not on file SERVICE TIME: 6:26 AM Post Op Day: 1 ATTENDING PHYSICIAN: Zonia Herring MD Subjective INTERVAL HISTORY OF PRESENT ILLNESS: Alanna Nelson is doing very well this morning. States her pain is a 0/10 and she has not required any narcotic overnight for pain control. Last night she ate crackers without N/V. Denies CP, SOB, abdominal pain, groin pain, flatus/BM, or significant vaginal bleeding. Patient reports RN recently changed pad and stated minimal blood on pad. She has not been out of bed yet. Barnard catheter remains in. No IS in room for patient to use. Enjoys the SCDs. We reviewed home going medications, patient states she can swallow tylenol, motrin, oxcodone without difficulty at home. States she just swallows a mini MANDM first and then can swallow pills. Objective PHYSICAL EXAM: BP 112/62 Pulse 78 Temp (Src) 98.2 (Oral) Resp 18 Ht 5' 3 (1.60m) Wt 252 lb (114.3kg) SpO2 94% LMP 05/04/2023 BMI 44.65 kg/(m2). O2 Therapy: Nasal Cannula, Liters: 0 General: AANDOx3, No acute distress, awake and sitting up in bed, unaccompanied Cardiovascular: RRR, Normal S1/S2 without murmurs, rubs, gallops Pulmonary: Breathing comfortably on room air, CTAB, Abdomen: Soft nontender nondistended, +BS : Barnard in place draining clear yellow urine, 20 cc output in urometer (recently changed), Incision: left groin incision clean, dry, intact covered with surgical glue, no tenderness to palpation Pelvic: no blood on pad Extremities: Nontender nonedematous nonerythematous BLEs, SCD's in place Date 07/03/23 07 - 07/04/23 0659 07/04/23 07 - 07/05/23 0659 Shift 1270-7030 0274-2775 3247-4925 24 Hour Total 2180-3764 7848-5066 3929-6740 24 Hour Total INTAKE IV 100 1250 1350 Volume (mL) (ceFAZolin iv piggyback 2 g in D5W (iso-osmotic) 100 mL (ANCEF)) 100 100 Volume (mL) (lactated ringers iv infusion) 1250 1250 Shift Total 100 1250 1350 OUTPUT Urine 325 400 725 OR Urine Output 225 225 Output ( Indwelling Urinary Catheter 07/03/[address] [facility] Barnard 16 Fr) 100 400 500 Blood 300 300 Estimated Blood loss 300 300 Shift Total 006 368 6501 Weight (kg) 114.3 114.3 114.3 114.3 114.3 114.3 114.3 Orders Placed This Encounter DIET REGULAR Standing Status: Standing Number of Occurrences: 1 Lines, Drains, and Airways Line Duration Peripheral 07/03/23 1047 Right Hand 20 Gauge <1 day Drain Duration Indwelling Urinary Catheter 07/03/[address] [facility] Barnard 16 Fr 1 day Current Anti-Infective Meds (From admission, onward) Start Stop Route Frequency Ordered 07/03/23 1300 ceFAZolin iv piggyback 2 g in D5W (iso-osmotic) 100 mL (ANCEF) 07/03/23 1357 INTRAVENOUS PRE-OP ONCE 07/03/23 0949 Current Anticoagulants AND Antiplatelets (From admission, onward) Start Stop Route Frequency Ordered 07/04/23 0800 enoxaparin 40 mg injection (LOVENOX) (enoxaparin injection (LOVENOX)) 07/04/23 1959 SUBCUTANEOUS ONCE 07/03/23 1839 DATA: Diagnostic tests reviewed for today's visit: CBC, Coags, BMP, Mg, Phos Patient Active Hospital Problem List: Vulvar cancer (HCC) (06/03/2023) Primary hypertension (06/27/2023) Postoperative state (07/04/2023) Assessment AND Plan: Alanna Nelson is a 48 year old with past medical history of at least stage IB SCC of the vulva, Lichen sclerosus, obesity and HTN, POD1 s/p Left inguinofemoral sentinel lymph node mapping and dissection and Radical left hemivulvectomy Plan: Active Hospital Problems Diagnosis Date Noted Vulvar cancer (HCC) 06/03/2023 Overview Note: - pathology pending Postoperative state 07/04/2023 Overview Note: - pain well controlled without narcotic use overnight, current pain regimen liquid tylenol/IV toradol - regular diet, has not eaten much yet, anticipate full breakfast and monitor for N/V - barnard catheter remains in, urine output ~ 33cc/hr clear yellow urine - passive void trial this morning - encourage out of bed today - hgb 13 pre-op, QBL 300, VSS and no clinical concerns, no AM labs - DVT ppx: SCDs on and functioning, lovenox dose this morning - anticipate discharge home today Primary hypertension 06/27/2023 Overview Note: - s/p fall at home 07/03 - BP normal during pre-op and post-op hospital course - home antihypertensive medication held - recommend patient f/u outpatient with PCP regarding decreasing/discontinuing antihypertensive medication in the setting of improved BP control Plan of care not finalized until cosigned by attending. 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 Reports pain well controlled. Tolerating sips of liquids. Denies lightheadedness or chest pain. Denies questions or concerns at this time. BP 111/70 Pulse 66 Temp 37.1 ?C (98.8 ?F) (Oral) Resp 18 Ht 160 cm (5' 3 ) Wt 114.3 kg (252 lb) LMP 05/04/2023 (Exact Date) SpO2 95% BMI 44.64 kg/m? General: NAD, laying in bed Heart: RR Lungs: normal respiratory effort : barnard catheter in. Minimal spotting on perineal pad. Patient is a 48 year old POD#0 left radical vulvectomy, unilateral lymph node dissection #postoperative state -meeting immediate postoperative milestones -plan for barnard removal with passive void trial in am -regular diet -pain: tylenol, toradol, oxycodone prn -GI: zofran -DVT ppx: lovenox 40mg in am Kath Gould MD [facility] 07-03-2023 Note HNO ID: [id number] Author: Ella Betancourt APRN.MEDICAL AND HEALTH SERVICES MANAGER Service: Anesthesiology Author Type: Nurse Soaking Room Operator Type: Anesthesia Procedure Notes Filed: 07/03/2023 1:37 PM Note Text: ANESTHESIOLOGY PROCEDURE NOTE Airway General Information Procedure Start Time/Medication Administration: 07/03/2023 1:19 PM Patient location during procedure: OR Patient identity confirmed: arm band and patient Staffing Anesthesiologist: Jayce Sanabria MD MEDICAL AND HEALTH SERVICES MANAGER: Ella Betancourt APRN.MEDICAL AND HEALTH SERVICES MANAGER Performed by: VALERIA Indications and Patient Condition Indications for airway management: anesthesia and airway protection Preoxygenated: yes anesthesia circuit Patient position: sniffing Method: asleep Cricoid Pressure: No Difficult Mask: No Airway Accessory: oral airway Final Airway Details Final airway type: endotracheal airway Final Endotracheal Airway: ETT Cuffed: yes Successful intubation technique: direct laryngoscopy Endotracheal tube insertion site: oral Blade: Ileana Blade size: #4 ETT size (mm): 7.5 Measured from: lips Measurement (cm): 21 Placement verified by: capnometry Cormack-Lehane Classification: grade IIa - partial view of glottis Number of attempts at approach: 1 Airway not difficult SIGNATURE: Ella Betancourt APRN.MEDICAL AND HEALTH SERVICES MANAGER PATIENT NAME: Alanna Nelson DATE: July 03, 2023 TIME: 1:37 PM CSN: [id number] [facility] 07-01-2023 Miscellaneous Notes Called to inform sergio of her surgery date and time but was hung up on so will try back later today. Ghada Birmingham MA documented in this encounter [facility] 06-27-2023 Instructions Lizzeth Cai APRN.[facility] - 06/27/2023 2:32 PM EST PATIENT PREOPERATIVE INSTRUCTIONS Zonia Herring MD has scheduled you for your procedure at this surgery center: [facility]: [phone], [address] [phone] Please read below carefully for your personalized instructions. Date of Surgery:07/03/2023 Arrival Time for Surgery: Your surgeon's office will provide you with your arrival time for surgery if they have not done so already. If you do not have your arrival time for surgery by the afternoon the day before your surgery you can call the surgeon's office. If you are scheduled for a Saturday surgery you can call the Saturday before. -Please be aware that emergency situations arise, which may delay or change your surgical time. If this happens, your surgeon's office will notify you as soon as possible and regret any inconvenience. Dietary Restrictions: - No solid food after midnight. - Between midnight and four hours prior to your surgery time, you may have 12 ounces of clear liquids (Apple juice, carbonated beverages, Gatorade, black coffee or tea) unless your surgeon specifies otherwise Medications: No outpatient medications have been marked as taking for the 06/27/23 encounter (PAT) with PST MAGY ACC 1. AVS was given to patient and specific instructions for each medication reviewed. Please continue to take blood pressure medications including day of surgery. Any oral diabetic medications should be held day of surgery. If you are taking insulin please discuss with prescribing physician for pre op instructions. Blood Thinning Medications: - Stop NSAIDS (Ibuprofen, Advil, Aleve, Motrin, Celebrex, Mobic, etc.) 7 days before surgery, as directed by your surgeon. - You may take Tylenol (Acetaminophen) or any of your current prescribed pain medications that do not contain aspirin or NSAIDS as needed. - If you take any of the following blood thinners, please contact your surgeon and the physician who prescribes it for you in order to get perioperative instructions as soon as possible Blood thinners: Aspirin,Coumadin, Plavix, Eliquis, Pradaxa, Xarelto, Lovenox, Brilinta, Effient, Savaysa, etc. - Stop Vitamin E, fish oil, Ginko, Duran's Wort, flax seed oil, multivitamins, CBD oil, marijuana and other over the counter herbals and dietary supplements 7 days before surgery. This would not apply to cancer patients who are prescribed Marinol or any other prescription form of marijuana or CBD. If you are taking Phentermine please hold 4 days prior to surgery. Pain Medications: Approved pain medications can be taken the morning of surgery with a sip of water. If you start any new medications after today's visit, please contact the surgeon's office. Important Reminders: - If you use CPAP/BIPAP, bring the machine with you to the surgery center. - If you are prescribed inhalers for breathing, continue using them AND bring them to the surgery center. - Candy, mints, gum and tobacco products are NOT permitted the morning of surgery. - Hearing aids, dentures and glasses may be worn the morning of surgery. - NO jewelry, body piercings, makeup, hairpins or contacts are to be worn the day of surgery. - NO lotion, creams, powders or deodorants on the skin the day of surgery - You will need to have someone else (Family or friend) drive you home once discharged from the hospital. You cannot take a cab or Uber. You are not allowed to drive yourself home after surgery. -You will need an adult(over the age of 18) to stay with you for the first 24 hours post surgery or your surgery may be cancelled. Please speak with your surgeon if this is an issue. If you develop symptoms such as a fever, cold, or flu, or have other changes to your health within TWO DAYS of scheduled surgery or the morning of surgery, please contact the surgery center above. Personal Belongings: - Leave ALL valuables and money at home or with family members. - You will need a form of ID and insurance card to check in the morning of surgery. - You will have to wear a hospital gown during your stay but if you wish to bring undergarments for after surgery you may. -If you do not have a copy of advance directives on file with us, please bring a copy with you on the day of surgery. If you already have an Advance Directive, please fax a copy to [phone] or email to for it to be added to your chart. If you do not have an Advance Directive, you can find the appropriate form and more information at [email or web address]. We recommend that you complete the Advance Directive form found on the website and bring it with you the day of your surgery. It can be witnessed and scanned into your chart that day. Please note-you should have a 72-hour period between getting your vaccine and date of surgery - If you have a stimulator, implant or pump that requires a remote please bring the remote with you day of surgery Lizzeth Cai APRN.REDRAWER documented in this encounter [facility] 06-27-2023 History and physical note HISTORY AND PHYSICAL EXAMINATION SERVICE DATE: 06/27/2023 SERVICE TIME: 2:43 PM PRIMARY CARE PHYSICIAN: Noelle Mazariegos MD Implantable Devices: None Patient denies blood thinners Assessment/Plan Vulvar cancer (HCC) [C51.9] PLAN Planned Procedure: Procedure(s): EXAM UNDER ANESTHESIA PELVIC / VAGINAL (N/A) VULVECTOMY PARTIAL RADIAC W/ BILATERAL INGUINOFEMORAL LYMPHADENECTOMY (N/A) INTRAOPERATIVE ID OF SENTINEL LYMPH NODE(S) INCL'D INJECTION OF NON-RAD DYE WHEN PERFORMED (N/A) The Following Tests/Procedures Have Been Initiated: CBC BMP done 06/19/2023 as ordered per surgeon T&S ordered but not done as ordered per surgeon. Re-entered per SONU -Con ABO ordered per SONU I spent a total of 40 minutes on the date of the service which included preparing to see the patient, [id number] patient care, completing clinical documentation, obtaining and/or reviewing separately obtained history, performing a medically appropriate examination, counseling and educating the patient/family/caregiver, and ordering medications, tests, or procedures. Assessment Patient has the following medical conditions which may affect sara-operative course: Pre-op exam see note for medical conditions which may affect sara-operative course that were addressed at today's visit. Vulvar cancer (HCC) Surgery scheduled 07/03/2023 Obesity, Class III, BMI >= 40 BMI 44.64 ALLY (obstructive sleep apnea) Does not use CPAP Primary hypertension Not on medications BP slightly elevated in PST. Denies H/A, CP, vision changes. Will monitor and discuss with PCP Gastroesophageal reflux disease without esophagitis Controlled with TUMS PRN [place] Activity Status Index: METS: Climb a flight of stairs or walk up a hill (5.50 METs) DASI Score: 5.5 Patient denies any chest pain or undue shortness of breath with the above physical activity. ARISCAT Score: Age: <=50 Preoperative SpO2: >=96% Respiratory infection in the last month: No Preoperative anemia: No Surgical incision: peripheral Duration of surgery: >3 hrs Emergency procedure: No ARISCAT Score: 23 ANESTHESIA FINDINGS: Intubation History: No prior intubation Significant Anesthesia Considerations: patient has only had [id number] to awake. Airway History: No prior intubation I - PHYSICAL EVALUATION AIRWAY Patient intubated: No. DENTAL Dental findings: teeth intact. II - ANESTHESIA PLAN Anesthetic Plan: general Beta Kira Monitoring Plan Post Procedure Analgesic Plan REASON FOR VISIT: Alanna Nelson is a 48 year old female who is scheduled for Procedure(s): EXAM UNDER ANESTHESIA PELVIC / VAGINAL (N/A) VULVECTOMY PARTIAL RADIAC W/ BILATERAL INGUINOFEMORAL LYMPHADENECTOMY (N/A) INTRAOPERATIVE ID OF SENTINEL LYMPH NODE(S) INCL'D INJECTION OF NON-RAD DYE WHEN PERFORMED (N/A) at the request of Dr. Zonia Herring for routine H&P. My final recommendation will be communicated back to the requesting physician by way of shared medical record or letter. Subjective The patient has the following: ACTIVE PROBLEM LIST Obesity, Class III, BMI >= 40 Vulvar Cancer (Hcc) Lichen Sclerosus Et Atrophicus Pre-Op Exam Ally (Obstructive Sleep Apnea) Primary Hypertension Gastroesophageal Reflux Disease Without Esophagitis COVID-19 Immunization Status Overdue - Covid-19 Vaccine (1) Never done No completion, postpone, frequency change, or communication history exists for this topic. CHIEF COMPLAINT: The reason for this visit is to perform a comprehensive review of the patient's past medical history, assess their current health status and obtain any additional testing required based on anesthesia guidelines. We will also identify any potential anesthesia problems or contraindications to the planned procedure. HPI: Patient is a 48 year old female who presents for pre surgical testing. She noticed a raised area in vulva in Summer 2022. She saw her buttermaker and biopsies done which demonstrated vulva CA. She states she has occasional discomfort and bleeding with flares. After discussion with the surgeon the patient agrees to surgical intervention. REVIEW OF SYSTEMS: General: Negative for: unintentional weight change, malaise and fever. Neurological: Negative for: headaches, seizures and strokes. Respiratory: Positive for: obstructive sleep apnea and CPAP/BiPAP noncompliant. Negative for: asthma, COPD, pneumonia within 6 weeks and URI < 2 weeks. Cardiovascular: Positive for: hypertension Negative for: atrial fibrillation, CAD, chest pain, CHF, DVT/PE and hyperlipidemia. GI: Positive for: GERD Negative for: abdominal pain, nausea and vomiting. : Negative for: dysuria, hematuria and renal failure. 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 Negative for: vaginal bleeding. Endocrine: Negative for: diabetes mellitus, hyperthyroidism and hypothyroidism. Hematology: Negative for: anemia, factor V Leiden and von Willebrand disease. Oncology: See HPI. Psych: Negative for: anxiety and depression. Musculoskeletal: Negative for: back pain and joint pain. Skin: Negative for lesions, rash and itching. PAST MEDICAL HISTORY Diagnosis Date Lichen sclerosus Obesity ALLY (obstructive sleep apnea) Vulvar cancer (HCC) PAST SURGICAL HISTORY Procedure Laterality Date DELIVERY ONLY 03/25/2000 per Natividad Palomino M.D. due to failure to progress DELIVERY ONLY 02/26/2003 RC/S per Dr. Palomino DELIVERY ONLY 08/27/2005 RC/S per Dr. Palomino LIGATE FALLOPIAN TUBE 08/27/2005 FAMILY HISTORY Problem Relation Age of Onset other (CVA) Father Colon Cancer Father Stroke Father other (atrial fib) Father Hypertension Brother Crohn's Disease Brother Breast Cancer Paternal Grandmother Social History Tobacco Use Smoking status: Never Smokeless tobacco: Never Vaping Use Vaping Use: Never used Substance Use Topics Alcohol use: Yes Comment: Rarely Drug use: Never Prior to Admission medications as of 06/27/23 1420 Medication Sig Last Dose Taking TERBINAFINE HCL ORAL Take by mouth as needed. Patient not taking: Reported on 06/27/2023 Not Taking norethindrone (AYGESTIN) 5 mg tablet Take 0.5 tablets by mouth as directed. for 10 days a month as needed to induce menses Patient not taking: Reported on 06/27/2023 Not Taking No medication comments found. ALLERGIES No Known Allergies Objective PHYSICAL EXAM: General: alert and oriented, healthy appearance and obese. Pertinent negatives noted - not distressed. Skin: normal color, no rash or lesions. HEENT: pupils equal round. Cardiovascular: regular rate and rhythm, normal S1 and S2, no rub, murmurs, or gallop. Pulse characterized as regular. Respiratory: normal breath sounds, no wheezes or crackles. No chest wall deformity or tenderness. Abdomen: bowel sounds present. Extremities: no deformity, no edema or tenderness, no joint swelling or clubbing. Neurological: normal cognition and motor skills. Gait normal. No weakness or sensory deficit. PAIN ASSESSMENT: Pain Pain Level: 3 VITALS: BP 158/102 Pulse 82 Temp 98.8 Resp 16 Ht 5' 3 (1.60m) Wt 252 lb (114.3kg) SpO2 96% LMP 05/04/2023 BMI 44.65 kg/(m^2). Diagnostic tests reviewed for today's visit: Lab Value Units Date High Low HB 13.0 g/dL 06/19/2023 15.5 11.5 HCT 40.1 % 06/19/2023 46.0 36.0 WBC 9.80 k/uL 06/19/2023 11.00 3.70 PLT 224 k/uL 06/19/2023 400 150 NA 140 mmol/L 06/19/2023 144 136 K 3.8 mmol/L 06/19/2023 5.1 3.7 GLUC 93 mg/dL 06/19/2023 99 74 BUN 15 mg/dL 06/19/2023 21 7 CREAT 0.75 mg/dL 06/19/2023 0.96 0.58 PTSEC No results within date range. INR No results within date range. APTT No results within date range. ALT No results within date range. AST No results within date range. TBILI No results within date range. TSH No results within date range. Lab Value Units Date High Low HCGQT No results within date range. UHCG No results within date range. HCG, BODY* No results within date range. Lab Value Units Date High Low ABORHD No results within date range. ABSCREEN No results within date range. No results found for: HBA1C No results found for this or any previous visit (from the past 8760 hour(s)). No results found for this or any previous visit (from the past 89700 hour(s)). Prepared for Surgery: CONSULTS: Patient does not require consults for optimization at this time Planned Anesthetic: general The Following Tests/Procedures Have Been Initiated: Orders Placed This Encounter Type and Screen, 30 day Standing Status: Future Number of Occurrences: 1 Standing Expiration Date: 09/26/2023 Order Specific Question: Hospital of Planned Surgery or Procedure: Answer: [facility] Confirm Blood Type Standing Status: Future Number of Occurrences: 1 Standing Expiration Date: 09/26/2023 Order Specific Question: Did Blood Bank direct you to place this order: Answer: No - Presurgical Workflow Instructions Given to Patient: Instructions located in the after visit summary. Patient given verbal and written preop instructions and voices comprehension and compliance. SIGNATURE: Lizzeth Cai APRN.CNP PATIENT NAME: Alanna Nelson DATE: June 27, 2023 TIME: 2:12 PM PAGER/CONTACT #: documented in this encounter [facility] documented as of this encounter (statuses as of 07/21/2023) [facility]12-14-2023 History of Past illness Narrative* Problem Noted Date Diagnosed Date Resolved Date Primary hypertension 06/27/2023 023 Overview: - s/p fall at home 07/03 - BP normal during pre-op and post-op hospital course - home antihypertensive medication held - recommend patient f/u outpatient with PCP regarding decreasing/discontinuing antihypertensive medication in the setting of improved BP control Last Assessment & Plan: Not on medications BP slightly elevated in PST. Denies H/A, CP, vision changes. Will monitor and discuss with PCP documented as of this encounter (statuses as of 08/23/2023) [facility]12-07-2023 NoteHNO ID: [id number] Author: Melani Wayne Service: ? Author Type: ? Type: Progress Notes Filed: 06/20/2023 2:43 PM Note Text: [facility]12-07-2023 History of Present illness Narrative* Melani Wayne - 06/20/2023 2:16 PM EST sherrill [facility] NoteHNO ID: [id number] Author: Zonia Herring MD Service: ? Author Type: Physician Type: Progress Notes Filed: 06/18/2023 10:59 PM Note Text: Gynecologic Oncology Consultation Note [facility] Virtual/video visit. Patient has consented to this video encounter, not originating from a related evaluation AND management service provided within 7 days. Referring provider: Dr. Peterson Chief complaint: Review PET HPI: This is a 48 year old patient with a history of obesity with a new diagnosis of at least stage IB well-differentiated, HPV-independent vulvar cancer here to review PET results. No new concerns today. ROS: 14 point ROS negative unless indicated in above HPI. Oncologic history: Oncology History No history exists. Medical history: PAST MEDICAL HISTORY Diagnosis Date - Lichen sclerosus - Obesity - Vulvar cancer (HCC) Surgical history: PAST SURGICAL HISTORY Procedure Laterality Date - DELIVERY ONLY 03/25/2000 per Natividad Palomino M.D. due to failure to progress - DELIVERY ONLY 02/26/2003 RC/S per Dr. Palomino - DELIVERY ONLY 08/27/2005 RC/S per Dr. 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 No abnormal pap smears - last was in 2021. Family history: Family History Problem Relation Age of Onset - other (CVA) Father - Colon Cancer Father - Hypertension Brother - Crohn's Disease Brother - Breast Cancer Paternal Grandmother Social history: Social History Tobacco Use - Smoking status: Never - Smokeless tobacco: Never Vaping Use - Vaping Use: Never used Substance Use Topics - Alcohol use: Yes Comment: Rarely - Drug use: Never Lives with and 3 children. [place] - probation. Medications: Current Outpatient Medications Medication Sig Dispense Refill - TERBINAFINE HCL ORAL Take by mouth. - norethindrone (AYGESTIN) 5 mg tablet Take 0.5 tablets by mouth as directed. for 10 days a month as needed to induce menses 5 tablet 12 No current facility-administered medications for this visit. Healthcare maintenance: Colonoscopy: 10 years ago - normal. Mammogram: 03/2023 - repeat in 1 year. Pap smear: Reports normal 2021 PE: EGOG PS 0 LMP 05/04/2023 (Exact Date) Gen: well-appearing, NAD Labs/Imaging: FINAL DIAGNOSIS A. Vulva, left labia majora superior part, white area, biopsy: - Lichen sclerosus. B. Vulva, left labia majora, lateral raised area, biopsy: - Invasive well-differentiated, keratinizing squamous cell carcinoma, HPV-independent (see comment). C. Vulva, left labia majora, medial thinner area, biopsy: - Invasive well-differentiated, keratinizing squamous cell carcinoma, HPV-independent (see comment). Diagnosis Comment B and C: Immunohistochemical stain for p53 shows increased expression and p16 is negative. This case has been reviewed at the intradepartmental gynecological pathology consensus meeting with Ramón Bee, Toña, Rocio and Yasmine, who concur. PET/CT (06/13/23): 1. Neck: No suspicious hypermetabolic foci 2. Chest: No evidence of FDG avid neoplastic process 3. Abdomen and pelvis: Hypermetabolic focus in the vulvar region. No hypermetabolic lymphadenopathy 4. Skeleton: No hypermetabolic osseous lesions A/P: This is a 48 year old patient here for consultation for at least IB SCC (HPV independent) vulvar cancer. Vulvar cancer (early): - PET without evidence of adenopathy or distant disease. - At this time, we will proceed with surgical staging and resection. - Reviewed again plan for radical hemivulvectomy and inguinofemoral lymph node dissection. Will plan for preoperative lymphoscintography to assess number and side of sentinel nodes - she understands I will not know if contralateral resection is indicated until lymphoscintography is performed. - Discussed plan for unilateral vs bilateral sentinel inguinofemoral lymph node dissection and full dissection in the even of non-mapping. - We reviewed 50 % change of wound break down. - Econsent sent for EUA, bilateral sentinel inguinofemoral lymph node dissection, radical left hemivulvectomy, any other indicated procedures. - We reviewed the following risks of surgery: infection, blood loss, need for transfusion, intraoperative injury to other structures, DVT/PE, nerve injuries, anesthesia related risks. Surgery: - T+S, CBC, BMP - PAT - Ancef/Heparin/SCDs - Overnight admission Zonia Herring MD, MPH Gynecologic Oncologist Medical Decision Making: Problems: Moderate: New problem with uncertain prognosis Data: Unique test result(s) reviewed: 1 Unique test(s) ordered: 3+ Risk: High: Decision on elective major surgery w/ risk factors [facility]: [facility] NoteHNO ID: [id number] Author: Brock Orta RT(R) Service: Radiology Author Type: Technologist Type: Progress Notes Filed: 06/13/2023 9:00 AM Note Text: RADIOLOGY SERVICE PROGRESS NOTE SERVICE DATE: 06/13/2023 SERVICE TIME: 8:59 AM PATIENT IDENTITY VERIFICATION COMPLETED USING TWO (2) STANDARD IDENTIFIERS: Name and Date of confirmed by patient verbally FALL SCREENING: Has the patient had 2 falls in the last year or 1 fall with injury or currently using an Ambulatory Assistive Device (Walker, Cane, Wheelchair, Crutches, etc.)? No PATIENT GENDER DATA: .female ALLERGIES: Reviewed and unchanged MEDICATIONS REVIEWED: Yes PATIENT RELEVANT IMPLANT DATA REVIEWED: Not Applicable CREATININE: Creatinine Date Value Ref Range Status 01/17/2019 0.85 0.51 - 0.95 mg/dL Final P.O.C.T. RESULTS: POC done: Yes, See Lab Tab June 13, [address] PERFORMED: No IV SITE: Ambulatory: A peripheral IV was started in the Right hand with a Angio cath: 24 gauge. POST EXAM PIV STATUS: Discontinued PROCEDURE TYPE: NM INJECT: PET/CT BODY SCAN. 15 mCi F18 FDG. No other medications given.. ADMINISTRATION TIME: 0855 PATIENT DISCHARGED TO: Ambulatory patient, left NM department area. A Diagnostic radioactive procedure has taken place, with no further precautions necessary other than routine body substance precautions. More information regarding radiation safety can be found using this link: [email or web address] SIGNATURE: CAMELIA Posey) PATIENT NAME: Alanna Nelson DATE: June 13, 2023 TIME: 8:59 AM PAGER/CONTACT #:[email or web address] History of Present illness Narrative* Brock Orta RT(R) - 06/13/2023 9:00 AM EST RADIOLOGY SERVICE PROGRESS NOTE SERVICE DATE: 06/13/2023 SERVICE TIME: 8:59 AM PATIENT IDENTITY VERIFICATION COMPLETED USING TWO (2) STANDARD IDENTIFIERS: Name and Date of confirmed by patient verbally FALL SCREENING: Has the patient had 2 falls in the last year or 1 fall with injury or currently using an Ambulatory Assistive Device (Walker, Cane, Wheelchair, Crutches, etc.)? No PATIENT GENDER DATA: .female ALLERGIES: Reviewed and unchanged MEDICATIONS REVIEWED: Yes PATIENT RELEVANT IMPLANT DATA REVIEWED: Not Applicable CREATININE: Creatinine Date Value Ref Range Status 01/17/2019 0.85 0.51 - 0.95 mg/dL Final P.O.C.T. RESULTS: POC done: Yes, See Lab Tab June 13, [address] PERFORMED: No IV SITE: Ambulatory: A peripheral IV was started in the Right hand with a Angio cath: 24 gauge. POST EXAM PIV STATUS: Discontinued PROCEDURE TYPE: NM INJECT: PET/CT BODY SCAN. 15 mCi F18 FDG. No other medications given.. ADMINISTRATION TIME: 08 PATIENT DISCHARGED TO: Ambulatory patient, left NM department area. A Diagnostic radioactive procedure has taken place, with no further precautions necessary other than routine body substance precautions. More information regarding radiation safety can be found using[employer] link: [email or web address] SIGNATURE: RT Kalpesh(R) PATIENT NAME: Alanna Nelson DATE: June 13, 2023 TIME: 8:59 AM PAGER/CONTACT #: [facility] NoteHNO ID: [id number] Author: Zonia Herring MD Service: ? Author Type: Physician Type: Progress Notes Filed: 06/03/2023 12:57 PM Note Text: Gynecologic Oncology Consultation Note [facility] Referring provider: Dr. Peterson Chief complaint: Vulvar cancer HPI: This is a 48 year old patient with a history of obesity with a new diagnosis of at least stage IB well-differentiated, HPV-independent vulvar cancer. She noticed something raised on her vulva in December or January. This prompted her to see Dr. Peterson, who performed 3 vulvar biopsies. One biopsy demonstrated lichen sclerosus and then other two well-differentiated SCC of the vulva. She was referred for further consultation. She reports the lesion is sometimes painful but no bleeding. No changes in bowel or bladder function. Here with her today. ROS: 14 point ROS negative unless indicated in above HPI. Oncologic history: Oncology History No history exists. Medical history: PAST MEDICAL HISTORY Diagnosis Date - Lichen sclerosus - Obesity - Vulvar cancer (HCC) Surgical history: PAST SURGICAL HISTORY Procedure Laterality Date - DELIVERY ONLY 03/25/2000 per Natividad Palomino M.D. due to failure to progress - DELIVERY ONLY 02/26/2003 RC/S per Dr. Palomino - DELIVERY ONLY 08/27/2005 RC/S per Dr. 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 No abnormal pap smears - last was in 2021. Family history: Family History Problem Relation Age of Onset - other (CVA) Father - Colon Cancer Father - Hypertension Brother - Crohn's Disease Brother - Breast Cancer Paternal Grandmother Social history: Social History Tobacco Use - Smoking status: Never - Smokeless tobacco: Never Vaping Use - Vaping Use: Never used Substance Use Topics - Alcohol use: Yes Comment: Rarely - Drug use: Never Lives with and 3 children. [place] - probation. Medications: Current Outpatient Medications Medication Sig Dispense Refill - TERBINAFINE HCL ORAL Take by mouth. - norethindrone (AYGESTIN) 5 mg tablet Take 0.5 tablets by mouth as directed. for 10 days a month as needed to induce menses 5 tablet 12 No current facility-administered medications for this visit. Healthcare maintenance: Colonoscopy: 10 years ago - normal. Mammogram: 03/2023 - repeat in 1 year. Pap smear: Reports normal 2021 PE: EGOG PS 0 BP 161/116 (BP Site: Right Arm, BP Position: Sitting, BP Cuff Size: Extra Large Adult) Pulse 85 Temp 36.8 ?C (98.3 ?F) (Oral) Ht 157.5 cm (5' 2 ) Wt 114.3 kg (252 lb) LMP 05/04/2023 (Exact Date) SpO2 97% BMI 46.09 kg/m? Gen: well-appearing, NAD Inguinal: no palpable nodes Pelvic: 4 (width) cm x 2.5 (length) cm raised lesion on left labia ~ 1 cm from midline arising in larger background (6 x 4 cm) lichen sclerosus. No other visible lesions. Labs/Imaging: FINAL DIAGNOSIS A. Vulva, left labia majora superior part, white area, biopsy: - Lichen sclerosus. B. Vulva, left labia majora, lateral raised area, biopsy: - Invasive well-differentiated, keratinizing squamous cell carcinoma, HPV-independent (see comment). C. Vulva, left labia majora, medial thinner area, biopsy: - Invasive well-differentiated, keratinizing squamous cell carcinoma, HPV-independent (see comment). Diagnosis Comment B and C: Immunohistochemical stain for p53 shows increased expression and p16 is negative. This case has been reviewed at the intradepartmental gynecological pathology consensus meeting with Ramón Bee, Rocio Ding and Yasmine, who concur. A/P: This is a 48 year old patient here for consultation for at least IB SCC (HPV independent) vulvar cancer. Vulvar cancer (early): - Reviewed pathology and pathogenesis via lichen sclerosus and p53 mutation rather than HPV. Discussed chronicity of lichen sclerosus and that this will require lifelong surveillance/management. - Based on today's exam, I believe that her tumor is amenable to surgical resection. - Given the size of the tumor, we will obtain preoperative imaging to rule out lymph node involvement or other metastatic disease as such information could change or plan of care. PET/CT ordered. - Reviewed plan for inguinal node assessment and radical local excision of the tumor. - Given that the tumor is < 4 cm and unifocal, we will plan on sentinel lymph node mapping/dissection. Will obtain preoperative lymphoscintography to aide with mapping and use in combination with ICG. Discussed contralateral dissection indicated if bilateral sentinels map or positive node in ipsilateral groin. - We did review > 30 % chance of chronic lymphedema and 50 % chance of wound breakdown despite our best efforts in preventing this complications. - RTC after PET to make final surgical p (more content not included)...[facility]11-20-2023 History of Present illness Narrative* Zonia Ruggiero MD - 06/03/2023 10:48 AM EST Gynecologic Oncology Consultation Note [facility] Referring provider: Dr. Peterson Chief complaint: Vulvar cancer HPI: This is a 48 year old patient with a history of obesity with a new diagnosis of at least stageIB well-differentiated, HPV-independent vulvar cancer. She noticed something raised on her vulva in December or January. This prompted her to see Dr. Peterson, who performed 3 vulvar biopsies. One biopsy demonstrated lichen sclerosus and then other two well-differentiated SCC of the vulva. She was referred for further consultation. She reports the lesion is sometimes painful but no bleeding. No changes in bowel or bladder function. Here with her today. ROS: 14 point ROS negative unless indicated in above HPI. Oncologic history: Oncology History No history exists. Medical history: PAST MEDICAL HISTORY Diagnosis Date Lichen sclerosus Obesity Vulvar cancer (HCC) Surgical history: PAST SURGICAL HISTORY Procedure Laterality Date DELIVERY ONLY 03/25/2000 per Natividad Palomino M.D. due to failure to progress DELIVERY ONLY 02/26/2003 RC/S per Dr. Palomino DELIVERY ONLY 08/27/2005 RC/S per Dr. 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 No abnormal pap smears - last was in 2021. Family history: Family History Problem Relation Age of Onset other (CVA) Father Colon Cancer Father Hypertension Brother Crohn's Disease Brother Breast Cancer Paternal Grandmother Social history: Social History Tobacco Use Smoking status: Never Smokeless tobacco: Never Vaping Use Vaping Use: Never used Substance Use Topics Alcohol use: Yes Comment: Rarely Drug use: Never Lives with and 3 children. 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 Medications: Current Outpatient Medications Medication Sig Dispense Refill TERBINAFINE HCL ORAL Take by mouth. norethindrone (AYGESTIN) 5 mg tablet Take 0.5 tablets by mouth as directed. for 10 days a month as needed to induce menses 5 tablet 12 No current facility-administered medications for this visit. Healthcare maintenance: Colonoscopy: 10 years ago - normal. Mammogram: 03/2023 - repeat in 1 year. Pap smear: Reports normal 2021 PE: EGOG PS 0 BP 161/116 (BP Site: Right Arm, BP Position: Sitting, BP Cuff Size: Extra Large Adult) Pulse 85 Temp 36.8 C (98.3 F) (Oral) Ht 157.5 cm (5' 2 ) Wt 114.3 kg (252 lb) LMP 05/04/2023 (Exact Date) SpO2 97% BMI 46.09 kg/m Gen: well-appearing, NAD Inguinal: no palpable nodes Pelvic: 4 (width) cm x 2.5 (length) cm raised lesion on left labia ~ 1 cm from midline arising in larger background (6 x 4 cm) lichen sclerosus. No other visible lesions. Labs/Imaging: FINAL DIAGNOSIS A. Vulva, left labia majora superior part, white area, biopsy: - Lichen sclerosus. B. Vulva, left labia majora, lateral raised area, biopsy: - Invasive well-differentiated, keratinizing squamous cell carcinoma, HPV- independent (see comment). C. Vulva, left labia majora, medial thinner area, biopsy: - Invasive well-differentiated, keratinizing squamous cell carcinoma, HPV- independent (see comment). Diagnosis Comment B and C: Immunohistochemical stain for p53 shows increased expression and p16 is negative. This case has been reviewed at the intradepartmental gynecological pathology consensus meeting with DrsRamón Eller, Rocio Ding and Yasmine, who concur. A/P: This is a 48 year old patient here for consultation for at least IB SCC (HPV independent) vulvar cancer. Vulvar cancer (early): - Reviewed pathology and pathogenesis via lichen sclerosus and p53 mutation rather than HPV. Discussed chronicity of lichen sclerosus and that this will require lifelong surveillance/management. - Based on today's exam, I believe that her tumor is amenable to surgical resection. - Given the size of the tumor, we will obtain preoperative imaging to rule out lymph node involvement or other metastatic disease as such information could change or plan of care. PET/CT ordered. - Reviewed plan for inguinal node assessment and radical local excision of the tumor. - Given that the tumor is < 4 cm and unifocal, we will plan on sentinel lymph node mapping/dissection. Will obtain preoperative lymphoscintography to aide with mapping and use in combination with ICG. Discussed contralateral dissection indicated if bilateral sentinels map or positive node in ipsilateral groin. - We did review > 30 % chance of chronic lymphedema and 50 % chance of wound breakdown despite our best efforts in preventing this complications. - RTC after PET to make final surgical plan, date. Zonia Herring MD, MPH Gynecologic Oncologist Medical Decision Making: Problems: High: Illness/injury w/ threat to life/body function and Chronic illness with severe change Data: Unique source(s) for external note(s) reviewed: 3+ Unique test result(s) reviewed: 3+ Unique test(s) ordered: 1 Risk: Low: Low risk from testing/treatment Medical Decision Making Level: 4 - Moderate documented in this encounterOhio[facility] Miscellaneous Notes* Telephone Encounter - Lilliam Sood RN - 05/27/2023 4:01 PM EST Received call from [facility] operations associate/onc office nurse. She said barrel assembler is currently on the phone with patient and they are scheduling her for Sunday 06/03. Lilliam Sood RN * Telephone Encounter - Lilliam Sood RN - 05/27/2023 3:48 PM EST Spoke to patient and she tried calling [facility] Television Script Writer/onc twice and left voicemail to schedule. I did try calling for her as well. I tried option 5 (calling from doctor's office) and it only rang- I hung up after 2 minutes. I then tried the speak to a nurse option and was sent to a voicemail. Left urgent voicemail that patient needs scheduled. Patient info given and nurse back line given to call back or said they could call patient to schedule. If they call office to schedule patient would like morning time. Will try calling the office again tomorrow morning if patient still not scheduled by then. Lilliam Sood RN * Telephone Encounter - Shannon Peterson MD - 05/27/2023 3:09 PM EST Please contact Alanna to follow up. I recommended f/u w/ [facility] oncology for vulvar squamous cell carcinoma and she hasn't scheduled within our system. There is operations associate oncology at [place] in [facility] or in [place]. Please see if she scheduled elsewhere or needs assistance getting scheduled. Thank you Shannon Peterson MD documented in this encounterOhiohealth [facility]11-06-2023 NoteHNO ID: [id number] Author: Shannon Peterson MD Service: ? Author Type: Physician Type: Progress Notes Filed: 05/20/2023 4:36 PM Note Text: VIRTUAL VISIT PROGRESS NOTE This is a virtual visit using myfab5om Video Visit. It required patient-provider interaction for the medical decision making as documented below. I have communicated my name and active licensure. The patient's identity and physical location were verified at the time of this visit. Either the patient or their legal sales representative trainee has been informed of the risks and benefits of -- and alternatives to -- treatment through a remote evaluation and consents to proceed with the evaluation remotely. Alanna Nelson is a 48 year old female seen for f/u vulvar biopsy. States area is healing well. No c/o or concerns with it. . HISTORY REVIEWED (electronic chart updated): PAST MEDICAL HISTORY Diagnosis Date Obesity PAST SURGICAL HISTORY Procedure Laterality Date DELIVERY ONLY 03/25/2000 per Natividad Palomino M.D. due to failure to progress DELIVERY ONLY 02/26/2003 RC/S per Dr. Palomino DELIVERY ONLY 08/27/2005 RC/S per Dr. Palomino LIGATE FALLOPIAN TUBE FAMILY HISTORY Problem Relation Age of Onset other (CVA) Father Hypertension Brother Crohn's Disease Brother Breast Cancer Paternal Grandmother Social History Tobacco Use Smoking status: Never Smokeless tobacco: Never Vaping Use Vaping Use: Never used Substance Use Topics Alcohol use: Yes Comment: Rarely Drug use: Never Current Outpatient Medications Medication Sig TERBINAFINE HCL ORAL Take by mouth. norethindrone (AYGESTIN) 5 mg tablet Take 0.5 tablets by mouth as directed. for 10 days a month as needed to induce menses No current facility-administered medications for this visit. 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 Recommend operations associate oncology consult to discuss treatement. D/w her likely surgery as primary treatment. Questions answered to best of my ability. Consult ordered. She desires to schedule w/ them herself and we will send her the information. There are no Patient Instructions on file for this visit. I spent a total of 18 minutes on the date of the service which included preparing to see the patient, [id number] patient care, completing clinical documentation, obtaining and/or reviewing separately obtained history, counseling and educating the patient/family/caregiver, and ordering medications, tests, or procedures Shannon Peterson [facility]11-06[facility] History of Present illness Narrative* Shannon Peterson MD - 05/20/2023 4:23 PM EST VIRTUAL VISIT PROGRESS NOTE This is a virtual visit using Sojernt Zoom Video Visit. It required patient- provider interaction for the medical decision making as documented below. I have communicated my name and active licensure. The patient's identity and physical location wereverified at the time of this visit. Either the patient or their legal sales representative trainee has been informed of the risks and benefits of -- and alternatives to -- treatment through a remote evaluation andconsents to proceed with the evaluation remotely. Alanna Nelson is a 48 year old female seen for f/u vulvar biopsy. States area is healing well. No c/o or concerns with it. . HISTORY REVIEWED (electronic chart updated): PAST MEDICAL HISTORY Diagnosis Date Obesity PAST SURGICAL HISTORY Procedure Laterality Date DELIVERY ONLY 03/25/2000 per Natividad Palomino M.D. due to failure to progress DELIVERY ONLY 02/26/2003 RC/S per Dr. Palomino DELIVERY ONLY 08/27/2005 RC/S per Dr. Palomino LIGATE FALLOPIAN TUBE FAMILY HISTORY Problem Relation Age of Onset other (CVA) Father Hypertension Brother Crohn's Disease Brother Breast Cancer Paternal Grandmother Social History Tobacco Use Smoking status: Never Smokeless tobacco: Never Vaping Use Vaping Use: Never used Substance Use Topics Alcohol use: Yes Comment: Rarely Drug use: Never Current Outpatient Medications Medication Sig TERBINAFINE HCL ORAL Take by mouth. norethindrone (AYGESTIN) 5 mg tablet Take 0.5 tablets by mouth as directed. for 10 days a month as needed to induce menses No current facility-administered medications for this visit. 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 Recommend operations associate oncology consult to discuss treatement. D/w herlikely surgery as primary treatment. Questions answered to best of my ability. Consult ordered. Shedesires to schedule w/ them herself and we will send her the information. There are no Patient Instructions on file for this visit. I spent a total of 18 minutes on the date of the service which included preparing to see the patient, [id number] patient care, completing clinical documentation, obtaining and/or reviewing separately obtained history, counseling and educating the patient/family/caregiver, and ordering medications, tests, or procedures Shannon Peterson MD documented in this encounterOhiohealth [facility]11-06-2023 Miscellaneous Notes* Telephone Encounter - Alanna Reeder RN - 05/20/2023 2:22 PM EST Thanks, that's what I thought. Called and scheduled with RR today. Alanna Reeder RN * Telephone Encounter - Steph Hung APRN.CNP - 05/20/2023 1:38 PM EST No, it needs to be RR. Pt has cancer. Steph Hung APRN.CNP * Telephone Encounter - Alanna Reeder RN - 05/20/2023 11:51 AM EST Patient was scheduled a VV with RM tomorrow, 05/21. Is this OK? * Telephone Encounter - Alanna Reeder RN - 05/20/2023 8:21 AM EST 2nd message left for patient to call the office. Alanna Reeder RN * Telephone Encounter - Alanna Reeder RN - 05/17/2023 4:50 PM EDT ----- Message from Shannon Peterson MD sent at 05/17/2023 4:46 PM EDT ----- I attempted to call patient Saturday afternoon, got voice mail. Did not want to leave message going into weekend. Please call her on Saturday am and set up a virtual visit for her w/ me that day to discuss biopsy results and plan. Thank you. Shannon Peterson MD documented in this encounterOhio[facility]11-01-2023 NoteHNO ID: [id number] Author: Shannon Peterson MD Service: ? Author Type: Physician Type: Progress Notes Filed: 05/15/2023 5:04 PM Note Text: lAanna Nelson is a 48 year old female who presents for problem visit for f/u vulvar biopsy. HPI: 48 YOF s/p vulvar biopsy for large lesion. States it was painful the first night and not bothersome since. No new c/o. 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 due to failure to progress DELIVERY ONLY 02/26/2003 RC/S per Dr. Palomino DELIVERY ONLY 08/27/2005 RC/S per Dr. Palomino LIGATE FALLOPIAN TUBE FAMILY HISTORY Problem Relation Age of Onset other (CVA) Father Hypertension Brother Crohn's Disease Brother Breast Cancer Paternal Grandmother Social History Tobacco Use Smoking status: Never Smokeless tobacco: Never Vaping Use Vaping Use: Never used Substance Use Topics Alcohol use: Yes Comment: Rarely Drug use: Never Current Outpatient Medications Medication Sig TERBINAFINE HCL ORAL Take by mouth. norethindrone (AYGESTIN) 5 mg tablet Take 0.5 tablets by mouth as directed. for 10 days a month as needed to induce menses No current facility-administered medications for this visit. Allergies As of Date: 05/15/2023 (No Known Allergies) Fully Assessed 05/15/2023 RAllergies and current medication updated:Yes EXAM: BP 142/88 Wt 254 lb (115.2kg) LMP 05/04/2023 GENERAL: pleasant, female in no apparent distress biopsy sites healing well, intact. No erythema or surrounding induration ASSESSMENT AND PLAN: s/p vulvar biopsy- Waiting for pathology irreg menses- d/w her again aygestin dosing. Take 10 days to induce menses if no spont. menses in that time. If no menses w/ 2 consecutive doses notify office. Shannon Peterson [facility]11-01-[facility] History of Present illness Narrative* Shannon Peterson MD - 05/15/2023 3:18 PM EDT Alanna Nelson is a 48 year old female who presents for problem visit for f/u vulvar biopsy. HPI: 48 YOF s/p vulvar biopsy for large lesion. States it was painful the first night and not bothersome since. No new c/o. 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 due to failure to progress DELIVERY ONLY 02/26/2003 RC/S per Dr. Palomino DELIVERY ONLY 08/27/2005 RC/S per Dr. Palomino LIGATE FALLOPIAN TUBE FAMILY HISTORY Problem Relation Age of Onset other (CVA) Father Hypertension Brother Crohn's Disease Brother Breast Cancer Paternal Grandmother Social History Tobacco Use Smoking status: Never Smokeless tobacco: Never Vaping Use Vaping Use: Never used Substance Use Topics Alcohol use: Yes Comment: Rarely Drug use: Never Current Outpatient Medications Medication Sig TERBINAFINE HCL ORAL Take by mouth. norethindrone (AYGESTIN) 5 mg tablet Take 0.5 tablets by mouth as directed. for 10 days a month as needed to induce menses No current facility-administered medications for this visit. Allergies As of Date: 05/15/2023 (No Known Allergies) Fully Assessed 05/15/2023 RAllergies and current medication updated:Yes EXAM: BP 142/88 Wt 254 lb (115.2kg) LMP 05/04/2023 GENERAL: pleasant, female in no apparent distress biopsy sites healing well, intact. No erythema or surrounding induration ASSESSMENT AND PLAN: s/p vulvar biopsy- Waiting for pathology irreg menses- d/w her again aygestin dosing. Take 10 days to induce menses if no spont. menses in that time. If no menses w/ 2 consecutive doses notify office. Shannon Peterson MD documented in this encounterOhiohealth [facility]10-27-2023 NoteHNO ID: [id number] Author: Shannon Peterson MD Service: ? Author Type: Physician Type: Progress Notes Filed: 05/10/2023 9:20 AM Note Text: Alanna Nelson is a 48 year old female who presents today for a vulvar biopsy. Indication: new vulvar lesion. UNIVERSAL PROTOCOL / SAFETY CHECKLIST Procedure to be Performed: Vulvar biopsy Sign In: A Moment of CARE was completed. Personnel directly involved with the procedure wore the appropriate PPE (Personal Protective Equipment). Patient/Surrogate Stated/Verified: PATIENT VERIFIED(optional for EMERGENT procedures): Patient name, Date of , Relevant allergies, and The intended procedure Time Out Communication: Intended patient and procedure match the source documents. Consent documented and matches the intended procedure. No implant(s) inserted. Sign Out: SIGN OUT (optional for EMERGENT procedures): All specimen containers correctly labeled. All instruments, equipment, possible retained foreign bodies accounted for. Post-procedure follow-up management communicated and Plan of Care Visit completed when applicable. Shannon Peterson M.D. PROCEDURE NOTE: GROSS LESIONS: Yes, on the left labia majora there is a 6 x 4 cm raised area with well-defined margins. The medial portion is not as raised as the lateral portion. The lateral portion is raised approximately 7 mm. The more medial area looks a little more ulcerated is only raised 2 to 3 mm. There is also some thin white skin with some fissures that is approximately 7 x 7 with poorly defined margins superior to the gross lesion. BIOPSY: Areas were cleansed with betadine and anesthetized with a total of 3 mL 1% lidocaine with 1:100,000 epi. 4mm Amanuel punch used to biopsy sales representative trainee areas of the 3 lesions. I biopsied the thinner more ulcerated medial lesion, the thicker lateral lesion and the superior thin white area.. HEMOSTASIS: Obtained with silver nitrate, pressure, and antibiotic ointment was placed over the lesions Procedure Summary: Patient tolerated procedure well. ASSESSMENT: Vulvar lesion with some thin white skin above the lesion on the left labium majora PLAN: Specimens labeled and sent to Pathology. Will notify patient of results in 1-2 weeks. Post-procedure instructions reviewed and written material given to the patient. Return in 1 week or as needed. Shannon Peterson, [facility]10-[facility]23 NoteHNO ID: [id number] Author: Shannon Peterson MD Service: ? Author Type: Physician Type: Progress Notes Filed: 04/22/2023 3:16 PM Note Text: Alanna is a 48 year old who presents for an annual gynecologic exam with complaints, lack of mensesw since 10/2022. .They were regular before this. Little spotting at times. Vulvar lump that urbano when urine hits it. Sometimes larger and sometimes smaller but hasn't gone away. Present for a couple of months. Hasn't drained. Never had this before. Denies hot flashes or vaginal dryness. No hair or skin changes. PCP office did some labs and was told not menopausal. 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 due to failure to progress DELIVERY ONLY 02/26/2003 RC/S per Dr. Palomino DELIVERY ONLY 08/27/2005 RC/S per Dr. Palomino LIGATE FALLOPIAN TUBE FAMILY HISTORY Problem Relation Age of Onset other (CVA) Father Hypertension Brother Crohn's Disease Brother Breast Cancer Paternal Grandmother SOCIAL HISTORY Social History Tobacco Use Smoking status: Never Smokeless tobacco: Never Vaping Use Vaping Use: Never used Substance Use Topics Alcohol use: Yes Comment: Rarely Drug use: Never REVIEW OF SYSTEMS Abdomen: No abdominal pain, nausea, vomiting, diarrhea, or constipation. No bloating, early satiety, indigestion, or increased flatulence. Bladder: No dysuria, gross hematuria, urinary frequency, urinary urgency, or incontinence. Breast: No breast lumps, nipple d/c, overlying skin changes, redness or skin retraction. Allergies and current medication updated:Yes EXAM: BP 154/92 Ht 5' 3 [with shoes[ (1.60m) Wt 257 lb (116.6kg) LMP 10/24/2022 BMI 45.54 kg/(m2). GENERAL: pleasant, female in no apparent distress HEENT: Normocephalic, atraumatic, mucus membranes moist, and no lesions NECK: Supple, full range of motion, no adenopathy, and thyroid normal DERMATOLOGY: Normal, without lesions, non-icteric, and non-hirsute BREAST: soft, non-tender, symmetric, no dominant mass, normal nipple-areolar complex, no lymphadenopathy, and no nipple discharge CHEST: Normal inspiratory effort ABDOMEN: soft, non-tender, and no masses PELVIC: normal Bartholin's glands, urethra, [place]'s glands, no vulvar lesions, no cervical lesions, good vaginal support, physiologic discharge present, normal appearing perineal body and perianal region, left labium majorum w/ 1.5 x 2 cm oval raised area, flesh colored, condylomatous in appearance. BIMANUAL: uterus normal size, shape and consistency, no adnexal masses, and non-tender RECTOVAGINAL: deferred. NEURO: alert and oriented x3,exam grossly non-focal EXTREMITIES: normal ASSESSMENT/PLAN: Reveiwed FSH/LH recently completed, normal. TSH normal 1) Health maintenance: Pap/HPV up to date. Mammogram up to date . 2) Contraception: tubal sterilization. Contraceptive options reviewed and information provided. 3) STD screening: Declined STD check. 4) Follow up one year or sooner as needed Irreg menses- likely oliogovulatory, reviewed labs, progestin challenge vulvar lesion, needs biopsy Shannon Peterson [facility] History of Present illness Narrative* Shannon Peterson MD - 04/22/2023 2:35 PM EDT Alanna is a 48 year old who presents for an annual gynecologic exam with complaints, lackof mensesw since 10/2022. .They were regular before this. Little spotting at times. Vulvar lump that urbano when urine hits it. Sometimes larger and sometimes smaller but hasn't gone away. Present for a couple of months. Hasn't drained. Never had this before. Denies hot flashes or vaginal dryness. No hair or skin changes. PCP office did some labs and was told not menopausal. 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 due to failure to progress DELIVERY ONLY 02/26/2003 RC/S per Dr. Palomino DELIVERY ONLY 08/27/2005 RC/S per Dr. Candelario HAGAN FALLOPIAN TUBE FAMILY HISTORY Problem Relation Age of Onset other (CVA) Father Hypertension Brother Crohn's Disease Brother Breast Cancer Paternal Grandmother SOCIAL HISTORY Social History Tobacco Use Smoking status: Never Smokeless tobacco: Never Vaping Use Vaping Use: Never used Substance Use Topics Alcohol use: Yes Comment: Rarely Drug use: Never REVIEW OF SYSTEMS Abdomen: No abdominal pain, nausea, vomiting, diarrhea, or constipation. No bloating, early satiety, indigestion, or increased flatulence. Bladder: No dysuria, gross hematuria, urinary frequency, urinary urgency, or incontinence. Breast: No breast lumps, nipple d/c, overlying skin changes, redness or skin retraction. Allergies and current medication updated:Yes EXAM: BP 154/92 Ht 5' 3 [with shoes[ (1.60m) Wt 257 lb (116.6kg) LMP 10/24/2022 BMI 45.54 kg/(m^2). GENERAL: pleasant, female in no apparent distress HEENT: Normocephalic, atraumatic, mucus membranes moist, and no lesions NECK: Supple, full range of motion, no adenopathy, and thyroid normal DERMATOLOGY: Normal, without lesions, non-icteric, and non-hirsute BREAST: soft, non-tender, symmetric, no dominant mass, normal nipple-areolar complex, no lymphadenopathy, and no nipple discharge CHEST: Normal inspiratory effort ABDOMEN: soft, non-tender, and no masses PELVIC: normal Bartholin's glands, urethra, [place]'s glands, no vulvar lesions, no cervical lesions,good vaginal support, physiologic discharge present, normal appearing perineal body and perianal region, left labium majorum w/ 1.5 x 2 cm oval raised area, flesh colored, condylomatous in appearance. BIMANUAL: uterus normal size, shape and consistency, no adnexal masses, and non-tender RECTOVAGINAL: deferred. NEURO: alert and oriented x3,exam grossly non-focal EXTREMITIES: normal ASSESSMENT/PLAN: Reveiwed FSH/LH recently completed, normal. TSH normal 1) Health maintenance: Pap/HPV up to date. Mammogram up to date . 2) Contraception: tubal sterilization. Contraceptive options reviewed and information provided. 3) STD screening: Declined STD check. 4) Follow up one year or sooner as needed Irreg menses- likely oliogovulatory, reviewed labs, progestin challenge vulvar lesion, needs biopsy Shannon Peterson MD [facility] Diagnosis Encounter for gynecological examination with abnormal finding- Primary Routine gynecological examination Screening for cervical cancer Screening for malignant neoplasm of the cervix Encounter for screening for human papillomavirus (HPV) Special screening examination for human papillomavirus (HPV) Vulval lesion Other specified noninflammatory disorder of vulva and perineum [facility] Diagnosis Vulval lesion- Primary Other specified noninflammatory disorder of vulva and perineum Irregular menstrual cycle [facility]* Diagnosis Squamous cell carcinoma of vulva (HCC)- Primary Malignant neoplasm of vulva, unspecified site [facility] Diagnosis Vulvar cancer (HCC)- Primary Malignant neoplasm of vulva, unspecified site Lichen sclerosus et atrophicus Circumscribed scleroderma [facility] Diagnosis Vulvar cancer (HCC) Malignant neoplasm of vulva, unspecified site [facility] Diagnosis Vulvar cancer (HCC)- Primary Malignant neoplasm of vulva, unspecified site Vulvar cancer (HCC) Malignant neoplasm of vulva, unspecified site [facility] Diagnosis Pre-op exam- Primary Preoperative examination, unspecified Vulvar cancer (HCC) Malignant neoplasm of vulva, unspecified site Obesity, Class III, BMI >= 40 Morbid obesity ALLY (obstructive sleep apnea) Obstructive sleep apnea (adult) (pediatric) Primary hypertension Unspecified essential hypertension Gastroesophageal reflux disease without esophagitis Esophageal reflux Vulvar cancer (HCC) Malignant neoplasm of vulva, unspecified site [facility] Diagnosis Vulvar cancer (HCC)- Primary Malignant neoplasm of vulva, unspecified site [facility]* Diagnosis Postop check- Primary Follow-up examination, following unspecified surgery Vulvar cancer (HCC) Malignant neoplasm of vulva, unspecified site [facility] Diagnosis Encounter for post surgical wound check- Primary Vulvar cancer (HCC) Malignant neoplasm of vulva, unspecified site documented in this encounter [facility] for referral (narrative)* Diagnostic Procedure Only (Urgent) - Authorized Specialty Diagnoses / Procedures Referred By Erica t Referred To Contact MOLECULAR & FUNCTIONAL IMAGING Diagnoses Vulvar cancer (HCC) Procedures NM PET/CT SKULL-THIGH INITIAL PET IMAGING CT ATTENUATION SKULL BASE MID-THIGH Zonia Herring MD [address] [place] [address] Molecular & Functional Imaging [address] [place] [address] Referral ID Status Reason Start Date Expiration Date Visits Requested Visits Authorized [id number] Authorized Auto-Generat ed Referral 3 07/02/2024 1 1 [facility] for referral (narrative)* Diagnostic Procedure Only (Urgent) - Closed Specialty Diagnoses / Procedures Referred By Erica morgan Referred To Contact MOLECULAR & FUNCTIONAL IMAGING Diagnoses Vulvar cancer (HCC) Procedures NM PET/CT SKULL-THIGH INITIAL PET IMAGING CT ATTENUATION SKULL BASE MID-THIGH Zonia Herring MD [address] [place] [address] Molecular & Functional Imaging [address] [place] [address] Referral ID Status Reason Start Date Expiration Date V isits Requested Visits Authorized [id number] Closed Auto-Generate d Referral 06/03/2023 07/02/2024 1 1 [facility] for referral (narrative)* Diagnostic Procedure Only (Urgent) - Pending Review Specialty Diagnoses / Procedures Referred By Erica morgan Referred To Contact MOLECULAR & FUNCTIONAL IMAGING Diagnoses Vulvar cancer (HCC) Procedures NM LYMPH NODE IMAGING LYMPHATICS & LYMPH NODES IMAGING Zonia Herring MD [address] [place] [address] Molecular & Functional Imaging [address] [place] [id number] Referral ID Status Reason Start Date Expiration Date Visits Requested Visits Authorized [id number] Pending Review Auto-Generat ed Referral 3 07/31/2024 1 1 [facility] N[facility]* Diagnostic Procedure Only (Urgent) - Closed Specialty Diagnoses / Procedures Referred By Contac t Referred To Contact MOLECULAR & FUNCTIONAL IMAGING Diagnoses Vulvar cancer (HCC) Procedures NM PET/CT SKULL-THIGH INITIAL PET IMAGING CT ATTENUATION SKULL BASE MID-THIGH Zonia Herring MD [address] [place] [address] Molecular & Functional Imaging [address] [place] [address] Referral ID Status Reason Start Date Expiration Date V isits Requested Visits Authorized [id number] Closed Auto-Generate d Referral 06/03/2023 07/02/2024 1 1 [facility] Reason for Referral Specialty Diagnoses / Procedures Referred By Contac t Referred To Contact Diagnoses Squamous cell carcinoma of vulva (HCC) Procedures CONSULT TO GYNECOLOGIC/ONCOLOGY OFFICE/OUTPATIENT [facility] 60-74 MINUTES Shannon Peterson MD [address] [place] [id number] Referral ID Status Reason Start Date Expiration Date Visits Requested Visits Authorized [id number] Pending Review PCP Requested Referral Auto-Generate d Referral 05/20/2023 05/19/2024 1 1 Summary Purpose Family History No Family History Records FoundNo Family History Records Found Advance Directives No Advanced Directives Records FoundNo Advanced Directives Records Found Additional Source Comments Source Comments (unrecognize d section and content) In the event this informatio n is protected by the Federal Confidentiality of Alcohol and Drug Abuse Patient Records regulations: The Federal rules restrict any use of the information to criminally investigate or prosecute any alcohol or drug abuse patient.[facility] the event this information is protected by the Federal Confidentiality of Alcohol and Drug Abuse Patient Records regulations: The Federal rules restrict any use of the information to criminally investigate or prosecute any alcohol or drug abuse patient.[facility] the event this information is protected by the Federal Confidentiality of Alcohol and Drug Abuse Patient Records regulations: The Federal rules restrict any use of the information to criminally investigate or prosecute any alcohol or drug abuse patient.[facility] the event this information is protected by the Federal Confidentiality of Alcohol and Drug Abuse Patient Records regulations: The Federal rules restrict any use of the information to criminally investigate or prosecute any alcohol or drug abuse patient.[facility] the event this information is protected by the Federal Confidentiality of Alcohol and Drug Abuse Patient Records regulations: The Federal rules restrict any use of the information to criminally investigate or prosecute any alcohol or drug abuse patient.[facility] the event this information is protected by the Federal Confidentiality of Alcohol and Drug Abuse Patient Records regulations: The Federal rules restrict any use of the information to criminally investigate or prosecute any alcohol or drug abuse patient.[facility] the event this information is protected by the Federal Confidentiality of Alcohol and Drug Abuse Patient Records regulations: The Federal rules restrict any use of the information to criminally investigate or prosecute any alcohol or drug abuse patient.[facility] the event this information is protected by the Federal Confidentiality of Alcohol and Drug Abuse Patient Records regulations: The Federal rules restrict any use of the information to criminally investigate or prosecute any alcohol or drug abuse patient.[facility] the event this information is protected by the Federal Confidentiality of Alcohol and Drug Abuse Patient Records regulations: The Federal rules restrict any use of the information to criminally investigate or prosecute any alcohol or drug abuse patient.[facility] the event this information is protected by the Federal Confidentiality of Alcohol and Drug Abuse Patient Records regulations: The Federal rules restrict any use of the information to criminally investigate or prosecute any alcohol or drug abuse patient.[facility] the event this information is protected by the Federal Confidentiality of Alcohol and Drug Abuse Patient Records regulations: The Federal rules restrict any use of the information to criminally investigate or prosecute any alcohol or drug abuse patient.[facility] the event this information is protected by the Federal Confidentiality of Alcohol and Drug Abuse Patient Records regulations: The Federal rules restrict any use of the information to criminally investigate or prosecute any alcohol or drug abuse patient.[facility] the event this information is protected by the Federal Confidentiality of Alcohol and Drug Abuse Patient Records regulations: The Federal rules restrict any use of the information to criminally investigate or prosecute any alcohol or drug abuse patient.[facility] the event this information is protected by the Federal Confidentiality of Alcohol and Drug Abuse Patient Records regulations: The Federal rules restrict any use of the information to criminally investigate or prosecute any alcohol or drug abuse patient.[facility] the event this information is protected by the Federal Confidentiality of Alcohol and Drug Abuse Patient Records regulations: The Federal rules restrict any use of the information to criminally investigate or prosecute any alcohol or drug abuse patient.[facility] the event this information is protected by the Federal Confidentiality of Alcohol and Drug Abuse Patient Records regulations: The Federal rules restrict any use of the information to criminally investigate or prosecute any alcohol or drug abuse patient.[facility] the event this information is protected by the Federal Confidentiality of Alcohol and Drug Abuse Patient Records regulations: The Federal rules restrict any use of the information to criminally investigate or prosecute any alcohol or drug abuse patient.[facility] Care Teams (unrecognized sec tion and content) Insole And Heel Stiffener Relationship Specialty Start Date End Date Noelle Mazariegos MD [address] [place] [address] PCP - General Family Medicine 01/17/19 Insole And Heel Stiffener Relationship Specialty Start Date End Date Noelle Mazariegos MD [address] [place] [address] PCP - General Family Medicine 01/17/19 Insole And Heel Stiffener Relationship Specialty Start Date End Date Noelle Mazariegos MD [address] [address] PCP - General Family Medicine 01/17/19 Insole And Heel Stiffener Relationship Specialty Start Date End Date Noelle Mazariegos MD [address] [facility] [place] [address] PCP - General Family Medicine 01/17/19 Insole And Heel Stiffener Relationship Specialty Start Date End Date Noelle Mazariegos MD [address] [facility] [place] [address] PCP - General Family Medicine 01/17/19 Insole And Heel Stiffener Relationship Specialty Start Date End Date Noelle Mazariegos MD [address] [place] [address] PCP - General Family Medicine 01/17/19 Insole And Heel Stiffener Relationship Specialty Start Date End Date Noelle Mazariegos MD [address] [place] [address] PCP - General Family Medicine 01/17/19 Insole And Heel Stiffener Relationship Specialty Start Date End Date Noelle Mazariegos MD [address] [place] [address] PCP - General Family Medicine 01/17/19 Insole And Heel Stiffener Relationship Specialty Start Date End Date Noelle Mazariegos MD [address] [place] [address] PCP - General Family Medicine 01/17/19 Insole And Heel Stiffener Relationship Specialty Start Date End Date Noelle Mazariegos MD [address] [place] [address] PCP - General Family Medicine 01/17/19 Insole And Heel Stiffener Relationship Specialty Start Date End Date Noelle Mazariegos MD [address] [place] [address] PCP - General Family Medicine 01/17/19 Insole And Heel Stiffener Relationship Specialty Start Date End Date Noelle Mazariegos MD [address] [place] [address] PCP - General Family Medicine 01/17/19 Insole And Heel Stiffener Relationship Specialty Start Date End Date Noelle Mazariegos MD [address] [place] [address] PCP - General Family Medicine 01/17/19 Insole And Heel Stiffener Relationship Specialty Start Date End Date Noelle Mazariegos MD [address] [place] [address] PCP - General Family Medicine 01/17/19 Reason for Visit (unrecogniz ed section and content) Reason Comments Follow Up Vulvar biopsy Reason Comments Results Reason Comments Results Reason Comments Referral Information Appointment Reason Comments New Patient Reason Comments Post Op Reason Comments Established Patient INFORMATION SOURCE (unrecogn ized section and content) DATE CREATED AUTHOR AUTHOR'S ORGANIZ ATION 08/25/2023 [facility] FOR RECORDS PERTAINING TO PATIENTS WHO ARE OR HAVE BEEN ENROLLED IN A CHEMICAL DEPENDENCY/SUBSTANCEABUSE PROGRAM, SOME INFORMATION MAY BE OMITTED. This clinical summary was aggregated from multiple sources. Caution should be exercised in using it in the provision of clinical care. This summary normalizes information from multiple sources, and as a consequence, information in this document may materially change the coding, format and clinical context of patient data. In addition, data may be omitted in some cases. CLINICAL DECISIONS SHOULD BE BASED ON THE PRIMARY CLINICAL RECORDS. [facility] [employer] [facility]. provides no warranty or guarantee of the accuracy or completeness of information in this document.
[2023-09-06 08:35] LABS: Free T3 2.2 pg/mL (2.18-3.98)
[2023-09-07 04:07] LABS: Thyroid Peroxidase AB 110 IU/mL (0-34)
[2023-09-07 11:09] LABS: Lyme Scn Total Ab w/Rflx Negative (Negative)
== END | disposition home or self-care (01) ==
LOC: MFPLAB 16:50
PROVIDERS: PCP Family Medicine; Visit Provider Family Medicine
DX: R79.89 Other specified abnormal findings of blood chemistry (principal); E66.01 Morbid (severe) obesity due to excess calories; R53.83 Other fatigue
CPT/HCPCS: 36415; 80053; 80061; 82607; 82746; 83036; 84439; 84443; 84481; 86376; 86618

== ENCOUNTER 2023-12-02 09:15 | Day surgery (SDC) | payer OTHER, SELFPAY ==
[2023-12-02] VITALS (7 sets, daily range): BP systolic 111–151; BP diastolic 67–91; PULSE 63–81; RESP 16; TEMP 36.2–36.9; O2SAT 96–97; BMI 45.8
--- NOTE | 2023-12-02 | COLBX_PTH ---
PATIENT: KYLAH KWAN LOC: EN U#:[id number] AGE/SX: 48/F ROOM: RE12/02/[address]: Dr. Violetta Hampton MD : 1975 BED: DIS: 12/02/2023 SPEC #: [id number] RECD: 12/02/23 13:51 STATUS: ALYSSA REKinga #: [id number] CLARENCE: 12/02/23 00:[address]: Violetta Hampton DEPT: SURGICAL PATHOLOGY RECD BY: Randy Valdez ENTERED: 12/02/23 13:51 SP TYPE: COLON BX OTHR DR: Dr. Nahum Marie MD Tissues: Rectum, NOS Procedures: Surgery Specimen Level IV HEADER OPERATION: Colonoscopy, polypectomy PRE-OP DIAGNOSIS: Encounter for screening for malignant neoplasm of colon TISSUE SUBMITTED: Rectal polyps x2 MICROSCOPIC DIAGNOSIS Rectal polyps, biopsy: Fragments of hyperplastic polyp. AM/mr 12/03/2023 MICROSCOPIC DESCRIPTION Slides are reviewed. GROSS DESCRIPTION Received in fixative is one container labeled with the patient's name and designated Rectal polyps. The specimen consists of multiple irregular fragments of light cote soft tissue that in aggregate measure 1.0 x 0.5 x 0.1 cm. The specimen is totally submitted in one cassette. AM/ 12/02/2023 TC:5 CPT:69837
[2023-12-02] MEDS: Lactated Ringers 1,000 ML 15 ML IV (09:38)
--- NOTE | 2023-12-02 10:33 | H&P.OPEN ---
[facility] - General General Date of Service: 12/02/23 HPI Narrative KYLAH KWAN, is a 48 F who presents for screening colonoscopy. Patient last colonoscopy in [address] Guzmán negative per patient. Patient dad was diagnosed with colon cancer in his 70s and 2 weeks later likely metastatic at this time, patient's grandma was diagnosed in her 90s. Patient has bowel movements daily denies any blood. Patient denies any chronic abdominal pain/nausea/vomiting/reflux. [facility] Medical History (Updated 12/02/23 @ 10:[address] Violetta Hampton MD) Wears glasses Cancer Thyroid disease Heartburn Non-smoker CPAP (continuous positive airway pressure) dependence Sleep apnea Leg cramps Vulvar cancer HTN (hypertension) Family history of colon cancer in father Home Medications ?Medication ?Instructions ?Recorded ?Last Taken ?Type ramipril 2.5 mg capsule 2.5 mg PO DAILY 10/08/23 Unknown History levothyroxine 25 mcg tablet 25 mcg PO DAILY 11/27/23 Unknown History Allergy/AdvReac Type Severity Reaction Status Date / Time No Known Allergies Allergy Verified 12/02/23 09:28 Family History (Updated 10/08/23 @ 09:55 by Richa Shields) Father Colon cancer Liver cancer Heart disease Grandmother Colon cancer Breast cancer Brother Crohn's disease Surgical History Hx of tubal ligation Hx of section History of local excision of skin lesion Hx of colonoscopy Social History (Updated 10/08/23 @ 09:57 by Richa Shields) household members: spouse current occupational status: employed 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 [employer] Smoking Status: Never smoker alcohol intake: never substance use type: does not use Past Medical/Surgical History Planned Operation Planned Operative Procedure/s: COLONOSCOPY Previous Hospitalizations/Surgeries HX Hospitalizations: Yes (EXCISION OF VULVAR CANCER LESION) Any Problems With Anesthesia: No You/Your Family Experience Fever (Hyperthermia) With Anes: No Cholinesterase deficiency: No Cardiovascular Hx Hypertension: Yes Respiratory Hx Sleep Apnea: Yes CPAP: Yes (NONCOMPLIANT) BIPAP: No Hx Respiratory Tract Infection/Cold (presently): No Result (for STOP score): Positive Smoking Status: Never smoker Neurological Does patient have nerve stimulator: No Reproduction : No Miscellaneous Recent Exposure to Contagious Disease: No Allergies No Known Allergies Allergy (Verified 12/02/23 09:28) Discharge Is Pt Admitted From a Prison, or a [place] [facility]: No Who Could Help: After D/C, Where Do you Plan to Go: Return Home Vital Signs Vital Signs Vital Signs: 12/02/23 09:28 12/02/23 09:28 Temperature 97.1 F L Temperature Source Temporal Pulse Rate 81 Respiratory Rate 16 Respiratory Pattern Normal Blood Pressure 151/91 H Blood Pressure Mean 111 Blood Pressure Source Monitor Blood Pressure Position Semi-Fowlers Blood Pressure Location Left Arm Pulse Ox 97 Oxygen Delivery Method Room Air Weight Weight: 259 lb Body Mass Index (BMI) 45.8 Physical Exam Const alert, oriented x3 and no apparent distress HEENT normocephalic and head/scalp atraumatic Resp normal respiratory effort Cardio regular rate GI soft to palpation and non-tender; Negative for non-distended Palpation: Negative for guarding Extremity no clubbing, cyanosis or edema Skin no rashes or lesions noted Neuro CN's II-XII intact bilaterally Psych mental status grossly normal Assessment & Plan Assessment/Plan (1) Encounter for screening for malignant neoplasm of colon: (2) Family history of colon cancer in father: Surgery Risks - Colonoscopy I discussed with the patient the risks of the procedure: Yes Risks Include but are not Limited To: Risks include but are not limited to: Bleeding, perforation requiring further surgery, inability to complete colonoscopy requiring barium enema.
--- NOTE | 2023-12-02 11:10 | OP.CCLET_ITS ---
12/02/2023 Nahum Marie [address] [facility] [address] [place] [address] Re : Colonoscopy procedure for Alanna Leslie Dear Dr. Marie This procedure was performed on Saturday, December 02, 2023. My impressions and recommendations are as follows: Impressions : - Two less than 5 mm polyps in the rectum, removed with a hot snare. Resected and retrieved. - Diverticulosis in the sigmoid colon. - The examination was otherwise normal on direct and retroflexion views. - The examined portion of the ileum was normal. Recommendations : - Discharge patient to home. - High fiber diet. - Continue present medications. - Await pathology results. - Repeat colonoscopy in 5 years for surveillance based on pathology results. My findings are described in the full procedure note, which is enclosed. If I can be of further assistance, please feel free to contact me at Doctor phone number(s): , Work: . Sincerely, MD Violetta Disla MD 12/02/2023 11:09:53 AM This report has been signed electronically.
--- NOTE | 2023-12-02 11:10 | OP.COLON_ITS ---
Patient Name: Alanna Nelson Procedure Date: 12/02/2023 10:32 AM Date of : 1975 Age: 48 Procedure: Colonoscopy Indications: Colon cancer screening in patient at increased risk: Colorectal cancer in father Providers: Violetta Hampton MD Medicines: Monitored Anesthesia Care Patient Profile: Last Colonoscopy: 2012. This is a 48 year old female. Complications: No immediate complications. Procedure: Pre-Anesthesia Assessment: - Prior to the procedure, a History and Physical was performed, and patient medications and allergies were reviewed. The patient's tolerance of previous anesthesia was also reviewed. The risks and benefits of the procedure and the sedation options and risks were discussed with the patient. All questions were answered, and informed consent was obtained. Prior Anticoagulants: The patient has taken no anticoagulant or antiplatelet agents. ASA Grade Assessment: Per anesthesia. After reviewing the risks and benefits, the patient was deemed in satisfactory condition to undergo the procedure. After I obtained informed consent, the scope was passed under direct vision. Throughout the procedure, the patient's blood pressure, pulse, and oxygen saturations were monitored continuously. The colonoscope was introduced through the anus and advanced to the terminal ileum. The colonoscopy was performed without difficulty. The patient tolerated the procedure well. The quality of the bowel preparation was good. Scope In: 10:43:08 AM Scope Withdrawal Time 0 hours 13 minutes 31 seconds Scope Out: 11:04:39 AM Total Procedure Duration Time 0 hours 21 minutes 31 seconds Findings: The perianal and digital rectal examinations were normal. Two semi-pedunculated polyps were found in the rectum. The polyps were less than 5 mm in size. These polyps were removed with a hot snare. Resection and retrieval were complete. A few small-mouthed diverticula were found in the sigmoid colon. The exam was otherwise without abnormality on direct and retroflexion views. The terminal ileum appeared normal. Impression: - Two less than 5 mm polyps in the rectum, removed with a hot snare. Resected and retrieved. - Diverticulosis in the sigmoid colon. - The examination was otherwise normal on direct and retroflexion views. - The examined portion of the ileum was normal. Recommendation: - Discharge patient to home. - High fiber diet. - Continue present medications. - Await pathology results. - Repeat colonoscopy in 5 years for surveillance based on pathology results. Procedure Code(s): --- Professional --- 12544, PT, Colonoscopy, flexible; with removal of tumor(s), polyp(s), or other lesion(s) by snare technique Diagnosis Code(s): --- Professional --- Z80.0, Family history of malignant neoplasm of digestive organs D12.8, Benign neoplasm of rectum K57.30, Diverticulosis of large intestine without perforation or abscess without bleeding CPT copyright 2021 [employer]. All rights reserved. The codes documented in this report are preliminary and upon foiling machine adjuster review may be revised to meet current compliance requirements. MD Violetta Disla MD 12/02/2023 11:09:53 AM This report has been signed electronically. Number of Addenda: 0 Note Initiated On: 12/02/2023 10:32 AM
== END 2023-12-02 12:28 | disposition home or self-care (01) ==
LOC: EN 09:17 → AC 09:18
PROVIDERS: PCP Family Medicine; Referring Provider Family Medicine; Visit Provider Surgery
PROC: 0DJD8ZZ Inspection of Lower Intestinal Tract, Via Natural or Artificial Opening Endoscopic (ICD-10-PCS; CPT 45378; principal; 2023-12-02 10:40)
DX: Z12.11 Encounter for screening for malignant neoplasm of colon (principal); K57.30 Diverticulosis of large intestine without perforation or abscess without bleeding; K62.1 Rectal polyp; I10 Essential (primary) hypertension; G47.30 Sleep apnea, unspecified; E07.9 Disorder of thyroid, unspecified; Z79.899 Other long term (current) drug therapy; Z80.0 Family history of malignant neoplasm of digestive organs
CPT/HCPCS: 45385; 88305; J7120; J2405

== ENCOUNTER → 2024-10-19 | Outpatient (CLI) | payer OTHER, SELFPAY ==
--- NOTE | 2024-10-19 07:24 | BI_ITS ---
EXAM: SCRN MAMM (CAD)W/KIM BILAT DATE: 10/19/2024 CLINICAL HISTORY: F, Age 49 y/o , SCREENING BREAST CANCER RISK ASSESSMENT: Has not been calculated. TECHNIQUE: Bilateral screening digital breast tomosynthesis with 2D and 3D images. Computer aided detection. COMPARISON: Prior exam(s) dated 04/04/2023 and 07/07/2019. FINDINGS: TISSUE DENSITY: The breast tissue is composed of scattered area of fibroglandular density. Bilateral Breast Mammographic Findings: Benign-appearing round calcifications are seen in both breasts. No suspicious masses, suspicious cluster of microcalcifications, architectural distortion or secondary sign of malignancy is identified in either breast. BI/SCRN MAMM (CAD)W/KIM BILAT IMPRESSION: Right Breast: BIRADS 2 BENIGN FINDING. Left Breast: BIRADS 2 BENIGN FINDING. OVERALL FINAL ASSESSMENT: BIRADS 2 BENIGN FINDING RECOMMENDATION: Routine annual follow-up in 1 Year A letter with findings and recommendations will be mailed to the patient. Reading Location: [id number]
== END | disposition home or self-care (01) ==
LOC: OPBI 07:23
PROVIDERS: PCP Family Medicine; Referring Provider Family Medicine; Visit Provider Family Medicine
DX: Z12.31 Encounter for screening mammogram for malignant neoplasm of breast (principal)
CPT/HCPCS: 77063; 77067